=== PATIENT | male | born 1940 | race Caucasian/White ===

== ENCOUNTER 2017-01-24 10:41 | Inpatient (IN) | payer BC, OTHER ==
[~2017-01-24] VITALS: Ht 180.3 cm; Wt 78.1 kg
[2017-01-24] MEDS ORDERED: ASPI-515 PO (12:22)
[2017-01-24] MEDS ORDERED: SPIR25TA3 PO (12:22)
[2017-01-24] MEDS ORDERED: DOXA2TAB9 PO (12:22)
[2017-01-24] MEDS ORDERED: PRAMPEXOLE PO (12:22)
[2017-01-24] MEDS ORDERED: DILT120C11 PO (12:22)
[2017-01-24] MEDS ORDERED: LISI-167 PO (12:22)
[2017-01-24] MEDS ORDERED: HYDROmorphone 1 MG/ML, 1ML ONE (13:11)
[2017-01-24] MEDS ORDERED: ONDANSETRON 2MG/ML, 2ML ONE (13:12)
[2017-01-24 13:25] LABS: HEMATOCRIT 47.2 % (39.2-51.8); HEMOGLOBIN 15.9 g/dL (13.7-18.0); WHITE BLOOD COUNT 10.3 x10^3/uL (3.4-10)
[2017-01-24] MEDS ORDERED: SODIUM CHLORIDE FLUSH 10ML SYR IVF ONE (13:30)
[2017-01-24] MEDS ORDERED: HYDROmorphone 1 MG/ML, 1ML IVPush PRN (13:30)
[2017-01-24] MEDS ORDERED: SODIUM CHLORIDE 0.9% 1,000ML IVBOLUS ONE (13:30)
[2017-01-24] MEDS ORDERED: ONDANSETRON 2MG/ML, 2ML IVPush ONE (13:30)
[2017-01-24 13:38] LABS: BLOOD UREA NITROGEN 12 mg/dL (7-18)
[2017-01-24 13:41] LABS: ASPARTATE AMINO TRANSFERASE 19 U/L (15-37)
[2017-01-24] MEDS ORDERED: OMNIPAQUE 350 MG/ML, 100ML BOTTLE ONE (14:19)
[2017-01-24] MEDS ORDERED: ACETAMINOPHEN 325 MG TABLET PO PRN (16:30)
[2017-01-24] MEDS: SUCRALFATE 1 GM/10 ML UDC PO SCH ×2 (16:30→21:20)
[2017-01-24] MEDS ORDERED: HYDROcodone/APAP 5/325 TABLET PO PRN (16:30)
[2017-01-24] MEDS ORDERED: NICOTINE 14MG/24 HR PATCH.TD24 TD SCH (16:30)
[2017-01-24] MEDS ORDERED: ONDANSETRON ODT 4 MG PO PRN (16:30)
[2017-01-24] MEDS ORDERED: morphine SULFATE 10 MG/ML, 1ML IVPush PRN (16:30)
[2017-01-24] MEDS ORDERED: MAALOX/HYOSCYAMINE/LIDOCAINE 45 ML BTL PO PRN (17:00)
[2017-01-24] MEDS ORDERED: PRAMIPEXOLE 1 MG PO SCH (21:00)
[2017-01-24] MEDS: PANTOPROZOLE 40MG TABLET PO SCH (21:20)
[2017-01-24] MEDS: SODIUM CHLORIDE 0.9% 1,000 ML IV SCH (21:20)
[2017-01-24] MEDS: HEPARIN 5,000 UNITS/ML, 1ML SQ SCH (21:21)
[2017-01-24 21:31] VITALS: BP 144/55
[2017-01-25 01:34] VITALS: BP 130/60
[2017-01-25 04:50] LABS: BLOOD UREA NITROGEN 12 mg/dL (7-18)
[2017-01-25 04:53] LABS: ASPARTATE AMINO TRANSFERASE 15 U/L (15-37); HEMATOCRIT 40.8 % (39.2-51.8); HEMOGLOBIN 13.6 g/dL (13.7-18.0); WHITE BLOOD COUNT 7.6 x10^3/uL (3.4-10)
[2017-01-25] MEDS ORDERED: PRAMIPEXOLE 0.5MG TABLET PO ONE (05:00)
[2017-01-25] MEDS: HEPARIN 5,000 UNITS/ML, 1ML SQ SCH ×2 (05:23→14:02)
[2017-01-25] MEDS: SODIUM CHLORIDE 0.9% 1,000 ML IV SCH (05:24)
[2017-01-25 08:00] VITALS: BP 131/60
[2017-01-25] MEDS: SUCRALFATE 1 GM/10 ML UDC PO SCH ×2 (08:02→11:35)
[2017-01-25] MEDS: PANTOPROZOLE 40MG TABLET PO SCH (08:07)
[2017-01-25] MEDS ORDERED: ASPIRIN 81 MG TABLET EC PO SCH (09:00)
[2017-01-25] MEDS ORDERED: DILTIAZEM 120 MG CAP.ER.12H PO SCH (09:00)
[2017-01-25] MEDS ORDERED: SPIRONOLACTONE 25 MG TABLET PO SCH (09:00)
[2017-01-25] MEDS ORDERED: TAMSULOSIN 0.4 MG CAP.ER.24H PO SCH (09:00)
[2017-01-25] MEDS ORDERED: LISINOPRIL 10 MG TABLET PO SCH (09:00)
[2017-01-25] MEDS ORDERED: FINASTERIDE 5 MG TABLET PO SCH (09:00)
[2017-01-25] MEDS ORDERED: AMOXICILLIN 500 MG CAPSULE PO SCH (09:00)
[2017-01-25] MEDS ORDERED: CLARITHROMYCIN 500 MG TABLET PO SCH (09:00)
[2017-01-25] MEDS ORDERED: DOXAZOSIN 2MG TABLET PO SCH (09:00)
[2017-01-25 09:48] VITALS: BP 145/64
[2017-01-25 14:00] VITALS: BP 152/74
[2017-01-25] MEDS ORDERED: AMOX-291 PO (15:29)
[2017-01-25] MEDS ORDERED: CLAR500T PO (15:29)
[2017-01-25] MEDS ORDERED: PANT40TA5 PO (15:29)
[2017-01-25] MEDS ORDERED: TAMS-11 PO (15:29)
[2017-01-25] MEDS ORDERED: SUCR1ORA2 PO (15:29)
[2017-01-25] MEDS ORDERED: PRAMIPEXOLE 0.5MG TABLET PO SCH (21:00)
== END 2017-01-25 17:06 | disposition home or self-care (01) | DRG 392 ==
LOC: ED 14:39 → EDIP 15:08 → 3NW 18:40 → DCLOUNGE 01-25 16:40
PROVIDERS: ADMIT Internal Medicine; ATTEND Internal Medicine
DX: K29.70 Gastritis, unspecified, without bleeding (principal); D68.69 Other thrombophilia; I48.0 Paroxysmal atrial fibrillation; F17.290 Nicotine dependence, other tobacco product, uncomplicated; I11.9 Hypertensive heart disease without heart failure; I73.9 Peripheral vascular disease, unspecified; B96.81 Helicobacter pylori [H. pylori] as the cause of diseases classified elsewhere; N40.0 Benign prostatic hyperplasia without lower urinary tract symptoms; Z83.3 Family history of diabetes mellitus; Z85.21 Personal history of malignant neoplasm of larynx; Z85.828 Personal history of other malignant neoplasm of skin; Z92.3 Personal history of irradiation; Z90.49 Acquired absence of other specified parts of digestive tract; Z79.82 Long term (current) use of aspirin; Z79.899 Other long term (current) drug therapy
CPT/HCPCS: 36415; 74177; 80053; 81001; 83605; 83690; 83735; 84100; 84153; 85025; 86677; 87040; 87086; 87147; 93005; 96372; 96374; C8929; J1170; J1644; J2405; Q0162; Q9967; J7030

== ENCOUNTER → 2017-03-04 | Outpatient (CLI) | payer OTHER ==
[~2017-03-04] MED LIST: AMOX-291 PO; ASPI-515 PO; CLAR500T PO; DILT120C11 PO; DOXA2TAB9 PO; LISI-167 PO; PANT40TA5 PO; PRAMPEXOLE PO; SPIR25TA3 PO; SUCR1ORA5 PO; TAMS-11 PO
== END | disposition home or self-care (01) ==
LOC: CFH 09:53
PROVIDERS: ATTEND Family Medicine
DX: R51 Headache (principal); I10 Essential (primary) hypertension
CPT/HCPCS: 70450

== ENCOUNTER 2017-07-11 22:48 | Emergency (ER) | payer OTHER ==
[~2017-07-11] VITALS: Ht 180.3 cm; Wt 81.9 kg
[~2017-07-11 22:48] MED LIST changes: +CARV12.52 PO; +DILT-8 PO; +DILT240C61 PO; +DOXA2TAB PO; +HYDR-3342 PO; +LORA1TAB PO; +PRAM1TAB5 PO
[2017-07-11 23:30] LABS: MICROSCOPIC AUTO
[2017-07-11 23:31] LABS: CULTURE INDICATED? NO
[2017-07-12 00:32] VITALS: BP 137/52
== END 2017-07-12 00:34 | disposition home or self-care (01) ==
LOC: ED 23:26
DX: R33.9 Retention of urine, unspecified (principal); R10.30 Lower abdominal pain, unspecified; I10 Essential (primary) hypertension
CPT/HCPCS: 81001; 99284

== ENCOUNTER → 2017-11-08 | Outpatient (CLI) | payer OTHER | END | disposition home or self-care (01) | LOC: CFH 09:54 | PROVIDERS: ATTEND Family Medicine | DX: N28.1 Cyst of kidney, acquired (principal); I10 Essential (primary) hypertension | CPT/HCPCS: 93975 ==

== ENCOUNTER 2018-03-04 18:17 | Inpatient (IN) | payer OTHER ==
[~2018-03-04] VITALS: Ht 170.2 cm; Wt 71.0 kg
[~2018-03-04 18:17] MED LIST changes: +ASPI-496 PO; +CARV6.2512 PO; +DILT240T PO; +LISI-170 PO; +SOFO1TAB PO; -SPIR25TA3 PO; +SPIR25TA5 PO
[2018-03-04] MEDS ORDERED: ONDANSETRON ODT 4 MG PO ONE (19:00)
[2018-03-04] MEDS ORDERED: FAMOTIDINE 20 MG/2 ML IVP ONE (19:00)
[2018-03-04 19:05] LABS: BASOPHILS # (AUTO) 0.11 x10^3/uL (0-0.1); BASOPHILS % (AUTO) 1 % (0-1); EOSINOPHILS # (AUTO) 0.23 x10^3/uL (0-0.4); EOSINOPHILS % (AUTO) 3 % (1-7); LYMPHOCYTES # (AUTO) 0.88 x10^3/uL (1-3.4); LYMPHOCYTES % (AUTO) 11 % (22-44); MD NO; MEAN CORPUSCULAR HGB CONC 33.9 g/dL (33.2-36.2); MEAN CORPUSCULAR VOLUME 94.4 fL (81-97); MEAN PLATELET VOLUME 8.2 fL (7.4-10.4); MONOCYTES # (AUTO) 0.52 x10^3/uL (0.2-0.8); MONOCYTES % (AUTO) 6 % (2-9); NEUTROPHILS # (AUTO) 6.44 x10^3/uL (1.8-6.8); NEUTROPHILS % (AUTO) 79 % (42-75); PLATELET COUNT 196 x10^3/uL (130-400); RED BLOOD COUNT 4.08 x10^6/uL (4.38-5.82); RED CELL DISTRIBUTION WIDTH 15.3 % (9.4-14.8)
[2018-03-04] MEDS ORDERED: MORPHINE SULFATE 4 MG/ML, 1ML ONE (19:12)
[2018-03-04] MEDS ORDERED: ONDANSETRON ODT 4 MG ONE (19:12)
[2018-03-04] MEDS ORDERED: FAMOTIDINE 20 MG/2 ML ONE (19:13)
[2018-03-04] MEDS: MORPHINE SULFATE 4 MG/ML, 1ML IVPush PRN ×2 (19:15→20:44)
[2018-03-04 19:16] LABS: ALBUMIN 3.3 g/dL (3.4-5.0); ANION GAP 6 mmol/L (5-15); CALCIUM 8.5 mg/dL (8.5-10.1); CHLORIDE 113 mmol/L (98-107)
[2018-03-04 19:21] LABS: ALANINE AMINOTRANSFERASE 20 U/L (12-78); ALKALINE PHOSPHATASE 88 U/L (45-117); BILIRUBIN,TOTAL 0.7 mg/dL (0.2-1.0); CREATININE 1.01 mg/dL (0.7-1.3); TOTAL PROTEIN 6.7 g/dL (6.4-8.2)
[2018-03-04 19:23] LABS: TROPONIN I 0.333 ng/mL (0.000-0.045)
[2018-03-04] MEDS ORDERED: ASPIRIN 81 MG TABLET CHEW ONE (19:50)
[2018-03-04] MEDS ORDERED: SODIUM CHLORIDE 0.9% 1,000ML IVBOLUS ONE (20:00)
[2018-03-04] MEDS ORDERED: OMNIPAQUE 350 MG/ML, 100ML BOTTLE ONE (20:00)
[2018-03-04] MEDS ORDERED: ASPIRIN 325 MG TABLET PO ONE (20:00)
[2018-03-04] MEDS ORDERED: HEPARIN 5,000 UNITS/ML, 1ML ONE (20:24)
[2018-03-04] MEDS ORDERED: HEPARIN 25,000 UNITS/500ML PMX 500 ML ONE (20:24)
[2018-03-04] MEDS ORDERED: HEPARIN 5,000 UNITS/ML, 1ML IV ONE ×2 (20:30→21:30)
[2018-03-04] MEDS ORDERED: HEPARIN 25,000 UNITS/500ML PMX 500 ML IV PRN ×2 (20:30→21:30)
[2018-03-04] MEDS ORDERED: HEPARIN 5,000 UNITS/ML, 1ML IV PRN ×2 (20:30→21:30)
[2018-03-04] MEDS ORDERED: ATOR20TA9 PO (20:34)
[2018-03-04] MEDS ORDERED: DILT240C9 PO (20:38)
[2018-03-04 21:25] VITALS: BP 144/58
[2018-03-04] MEDS ORDERED: ONDANSETRON ODT 4 MG PO PRN (21:30)
[2018-03-04] MEDS ORDERED: NITROGLYCERIN 0.4 MG BOTTLE (25 TABS) SL PRN (21:30)
[2018-03-04] MEDS ORDERED: POLYETHYLENE GLYCOL 17 GM PACKET PO PRN (21:30)
[2018-03-04] MEDS ORDERED: BISACODYL 10 MG SUPP PR PRN (21:30)
[2018-03-04] MEDS ORDERED: DOXAZOSIN 2MG TABLET PO SCH (21:30)
[2018-03-04] MEDS ORDERED: DILTIAZEM 240 MG CAP.ER.24H PO SCH (21:30)
[2018-03-04] MEDS: CARVEDILOL 6.25 MG TABLET PO SCH (22:57)
[2018-03-04] MEDS: FUROSEMIDE 20 MG/2 ML IV SCH (22:57)
[2018-03-04] MEDS: DILTIAZEM 120 MG CAP.ER.12H PO SCH (22:58)
[2018-03-04] MEDS ORDERED: SODIUM CHLORIDE 0.9% 1,000 ML IV SCH (23:00)
[2018-03-04] MEDS: LISINOPRIL 20 MG TABLET PO SCH (23:00)
[2018-03-04] MEDS: PRAMIPEXOLE 0.5MG TABLET PO SCH (23:01)
[2018-03-04] MEDS: SODIUM CHLORIDE FLUSH 10ML SYR IVF SCH (23:02)
[2018-03-04] MEDS: morphine SULFATE 10 MG/ML, 1ML IVPush PRN (23:19)
[2018-03-05 02:01] LABS: BASOPHILS # (AUTO) 0.19 x10^3/uL (0-0.1); BASOPHILS % (AUTO) 2 % (0-1); EOSINOPHILS # (AUTO) 0.28 x10^3/uL (0-0.4); EOSINOPHILS % (AUTO) 4 % (1-7); LYMPHOCYTES # (AUTO) 1.29 x10^3/uL (1-3.4); LYMPHOCYTES % (AUTO) 16 % (22-44); MD NO; MEAN CORPUSCULAR HEMOGLOBIN 31.1 pg (27.5-34.5); MEAN CORPUSCULAR HGB CONC 33.3 g/dL (33.2-36.2); MEAN CORPUSCULAR VOLUME 93.4 fL (81-97); MEAN PLATELET VOLUME 8.1 fL (7.4-10.4); MONOCYTES # (AUTO) 0.72 x10^3/uL (0.2-0.8); MONOCYTES % (AUTO) 9 % (2-9); NEUTROPHILS # (AUTO) 5.66 x10^3/uL (1.8-6.8); NEUTROPHILS % (AUTO) 70 % (42-75); PLATELET COUNT 194 x10^3/uL (130-400); RED BLOOD COUNT 3.85 x10^6/uL (4.38-5.82); RED CELL DISTRIBUTION WIDTH 15.1 % (9.4-14.8)
[2018-03-05 02:13] LABS: INTERNATIONAL NORMALIZED RATIO 1.05 (0.93-1.1); PROTHROMBIN TIME 10.9 Seconds (9.6-11.5); TROPONIN I 0.254 ng/mL (0.000-0.045)
[2018-03-05 03:09] VITALS: BP 119/58
[2018-03-05] MEDS: ACETAMINOPHEN 325 MG TABLET PO PRN (04:29)
[2018-03-05] MEDS: LORazepam 1MG TABLET PO SCH (05:34)
[2018-03-05] MEDS ORDERED: ASPIRIN 81 MG TABLET EC PO SCH (06:00)
[2018-03-05 06:48] VITALS: BP 117/59
[2018-03-05 07:29] LABS: ALANINE AMINOTRANSFERASE 21 U/L (12-78); ALBUMIN 3.2 g/dL (3.4-5.0); ANION GAP 7 mmol/L (5-15); CALCIUM 8.3 mg/dL (8.5-10.1); CHLORIDE 112 mmol/L (98-107); CREATININE 1.17 mg/dL (0.7-1.3)
[2018-03-05 07:34] LABS: ALKALINE PHOSPHATASE 92 U/L (45-117); BILIRUBIN,TOTAL 0.4 mg/dL (0.2-1.0); CHOL/HDL RATIO 1.9; CHOLESTEROL, TOTAL 79 mg/dL (140-239); HDL CHOL % 53 % (26-37); HDL CHOLESTEROL (DIRECT) 42 mg/dL (40-60); LDL CHOLESTEROL,CALCULATED 30 mg/dL (54-169); LDL/HDL RATIO 0.7 (0.5-3.0); TOTAL PROTEIN 6.3 g/dL (6.4-8.2); TRIGLYCERIDES 36 mg/dL (50-200); TROPONIN I 0.243 ng/mL (0.000-0.045); VLDL CHOLESTEROL 7 mg/dL (0-25)
[2018-03-05] MEDS ORDERED: FENTANYL PF 100 MCG/2ML ONE (07:49)
[2018-03-05] MEDS ORDERED: NITROGLYCERIN 5 MG/ML, 10ML ONE (07:49)
[2018-03-05] MEDS ORDERED: TICAGRELOR 90 MG TABLET ONE (07:49)
[2018-03-05] MEDS ORDERED: VERAPAMIL 2.5 MG/ML, 2ML ONE (07:49)
[2018-03-05] MEDS ORDERED: MIDAZOLAM 1 MG/ML, 5ML ONE (07:49)
[2018-03-05] MEDS ORDERED: HEPARIN 1,000 UNITS/ML, 10ML ONE (07:50)
[2018-03-05] MEDS ORDERED: BIVALIRUDIN 250 MG ONE (07:50)
[2018-03-05] MEDS ORDERED: LORazepam 1MG TABLET PO SCH (09:00)
[2018-03-05] MEDS: CARVEDILOL 6.25 MG TABLET PO SCH ×2 (09:00→20:27)
[2018-03-05] MEDS: SENNA/DOCUSATE TABLET PO SCH (09:00)
[2018-03-05] MEDS ORDERED: ATORVASTATIN 20 MG TABLET PO SCH (09:00)
[2018-03-05] MEDS: DILTIAZEM 120 MG CAP.ER.12H PO SCH ×2 (09:00→20:27)
[2018-03-05] MEDS ORDERED: SODIUM CHLORIDE 0.9% 1,000 ML IV SCH ×2 (09:43→10:00)
[2018-03-05] MEDS: FUROSEMIDE 20 MG/2 ML IV SCH ×2 (11:24→14:15)
[2018-03-05] MEDS: SODIUM CHLORIDE FLUSH 10ML SYR IVF SCH ×2 (11:28→20:28)
[2018-03-05] MEDS: DOXAZOSIN 2MG TABLET PO SCH (11:34)
[2018-03-05] MEDS: LISINOPRIL 20 MG TABLET PO SCH ×2 (11:40→20:28)
[2018-03-05 12:26] VITALS: BP 179/153
[2018-03-05] MEDS ORDERED: FUROSEMIDE 40 MG/4 ML ONE (12:35)
[2018-03-05] MEDS ORDERED: ALBUTEROL/IPRATROPIUM 2.5MG/0.5MG, 3 ML ONE (12:41)
[2018-03-05] MEDS ORDERED: FUROSEMIDE 40 MG/4 ML IV ONE ×2 (13:00→18:00)
[2018-03-05] MEDS ORDERED: TAMSULOSIN 0.4 MG CAP.ER.24H PO SCH (16:00)
[2018-03-05] MEDS: morphine SULFATE 10 MG/ML, 1ML IVPush PRN ×2 (16:32→17:04)
[2018-03-05] MEDS: FUROSEMIDE 40 MG/4 ML IV SCH (17:10)
[2018-03-05 19:04] VITALS: BP 121/62
[2018-03-05] MEDS: ATORVASTATIN 80 MG TABLET PO SCH (20:27)
[2018-03-05] MEDS: PRAMIPEXOLE 0.5MG TABLET PO SCH (20:27)
[2018-03-05] MEDS: SPIRONOLACTONE 25 MG TABLET PO SCH (20:28)
[2018-03-05] MEDS ORDERED: PRAMIPEXOLE 0.5MG TABLET PO SCH (21:00)
[2018-03-05] MEDS ORDERED: TICAGRELOR 90 MG TABLET PO SCH (21:00)
[2018-03-05] MEDS ORDERED: LORazepam 1MG TABLET PO ONE (22:30)
[2018-03-06 01:02] VITALS: BP 122/52
[2018-03-06] MEDS ORDERED: ATROPINE SYRINGE 0.1 MG/ML, 10ML ONE (01:14)
[2018-03-06 05:22] LABS: BASOPHILS # (AUTO) 0.06 x10^3/uL (0-0.1); BASOPHILS % (AUTO) 1 % (0-1); EOSINOPHILS # (AUTO) 0.15 x10^3/uL (0-0.4); EOSINOPHILS % (AUTO) 2 % (1-7); LYMPHOCYTES # (AUTO) 0.81 x10^3/uL (1-3.4); LYMPHOCYTES % (AUTO) 8 % (22-44); MD NO; MEAN CORPUSCULAR HEMOGLOBIN 32.1 pg (27.5-34.5); MEAN CORPUSCULAR HGB CONC 34.2 g/dL (33.2-36.2); MEAN CORPUSCULAR VOLUME 93.7 fL (81-97); MEAN PLATELET VOLUME 8.5 fL (7.4-10.4); MONOCYTES # (AUTO) 0.84 x10^3/uL (0.2-0.8); MONOCYTES % (AUTO) 9 % (2-9); NEUTROPHILS # (AUTO) 8.04 x10^3/uL (1.8-6.8); NEUTROPHILS % (AUTO) 81 % (42-75); PLATELET COUNT 199 x10^3/uL (130-400)
[2018-03-06 05:36] LABS: CHLORIDE 109 mmol/L (98-107)
[2018-03-06 05:44] LABS: ALANINE AMINOTRANSFERASE 22 U/L (12-78); ALBUMIN 3.6 g/dL (3.4-5.0); ALKALINE PHOSPHATASE 100 U/L (45-117); ANION GAP 10 mmol/L (5-15); BILIRUBIN,TOTAL 1.3 mg/dL (0.2-1.0); CALCIUM 9.4 mg/dL (8.5-10.1); CREATININE 1.13 mg/dL (0.7-1.3); TOTAL PROTEIN 7.2 g/dL (6.4-8.2)
[2018-03-06] MEDS: LORazepam 1MG TABLET PO SCH ×2 (06:25→07:53)
[2018-03-06 07:23] VITALS: BP 124/58
[2018-03-06] MEDS: SENNA/DOCUSATE TABLET PO SCH (07:52)
[2018-03-06] MEDS: CARVEDILOL 6.25 MG TABLET PO SCH (07:52)
[2018-03-06] MEDS: DILTIAZEM 120 MG CAP.ER.12H PO SCH (07:54)
[2018-03-06] MEDS: FUROSEMIDE 40 MG/4 ML IV SCH ×2 (08:19→17:46)
[2018-03-06] MEDS: DOXAZOSIN 2MG TABLET PO SCH ×2 (08:20→09:00)
[2018-03-06] MEDS: SODIUM CHLORIDE FLUSH 10ML SYR IVF SCH ×2 (08:20→20:55)
[2018-03-06] MEDS ORDERED: FUROSEMIDE 40 MG/4 ML IV ONE (08:30)
[2018-03-06] MEDS: LISINOPRIL 20 MG TABLET PO SCH ×2 (09:20→20:56)
[2018-03-06] MEDS: morphine SULFATE 10 MG/ML, 1ML IVPush PRN ×2 (09:20→10:36)
[2018-03-06] MEDS: CLOPIDOGREL 75 MG TABLET PO SCH (09:20)
[2018-03-06] MEDS ORDERED: OPIUM/BELLADONNA SUPP.RECT 16.2-30 MG PR PRN (10:00)
[2018-03-06] MEDS: ASPIRIN 81 MG TABLET EC PO SCH (11:44)
[2018-03-06] MEDS ORDERED: SODIUM CHLORIDE NASAL SPRAY 45ML BOTTLE NAS PRN (13:00)
[2018-03-06 13:04] VITALS: BP 118/56
[2018-03-06 20:47] VITALS: BP 122/69
[2018-03-06] MEDS: LORazepam 1MG TABLET PO PRN (20:50)
[2018-03-06] MEDS: ATORVASTATIN 80 MG TABLET PO SCH (20:50)
[2018-03-06] MEDS: SPIRONOLACTONE 25 MG TABLET PO SCH (20:52)
[2018-03-06] MEDS: PRAMIPEXOLE 0.5MG TABLET PO SCH (21:57)
[2018-03-06] MEDS: TRAZODONE 50MG TABLET PO PRN (21:57)
[2018-03-07 02:00] VITALS: BP 120/64
[2018-03-07] MEDS: DILTIAZEM 120 MG CAP.ER.12H PO SCH ×3 (02:00→21:13)
[2018-03-07] MEDS: ACETAMINOPHEN 325 MG TABLET PO PRN (05:31)
[2018-03-07 06:06] LABS: BASOPHILS # (AUTO) 0.08 x10^3/uL (0-0.1); BASOPHILS % (AUTO) 1 % (0-1); EOSINOPHILS # (AUTO) 0.07 x10^3/uL (0-0.4); EOSINOPHILS % (AUTO) 1 % (1-7); LYMPHOCYTES # (AUTO) 0.85 x10^3/uL (1-3.4); LYMPHOCYTES % (AUTO) 9 % (22-44); MD NO; MEAN CORPUSCULAR HEMOGLOBIN 31.4 pg (27.5-34.5); MEAN CORPUSCULAR HGB CONC 34.1 g/dL (33.2-36.2); MEAN PLATELET VOLUME 8.2 fL (7.4-10.4); MONOCYTES # (AUTO) 0.67 x10^3/uL (0.2-0.8); MONOCYTES % (AUTO) 7 % (2-9); NEUTROPHILS # (AUTO) 7.76 x10^3/uL (1.8-6.8); NEUTROPHILS % (AUTO) 82 % (42-75); PLATELET COUNT 199 x10^3/uL (130-400); RED BLOOD COUNT 4.34 x10^6/uL (4.38-5.82)
[2018-03-07 06:13] LABS: CHLORIDE 105 mmol/L (98-107)
[2018-03-07 06:23] LABS: ALANINE AMINOTRANSFERASE 20 U/L (12-78); ALBUMIN 3.7 g/dL (3.4-5.0); ALKALINE PHOSPHATASE 105 U/L (45-117); ANION GAP 11 mmol/L (5-15); BILIRUBIN,TOTAL 1.5 mg/dL (0.2-1.0); CALCIUM 9.1 mg/dL (8.5-10.1); CREATININE 1.11 mg/dL (0.7-1.3); TOTAL PROTEIN 7.1 g/dL (6.4-8.2)
[2018-03-07 06:58] VITALS: BP 133/67
[2018-03-07] MEDS ORDERED: CEFAZOLIN PMX 1GM/50ML 50 ML IVPB ONE (08:30)
[2018-03-07] MEDS: LISINOPRIL 20 MG TABLET PO SCH ×2 (08:49→21:13)
[2018-03-07] MEDS: LORazepam 1MG TABLET PO SCH (08:49)
[2018-03-07] MEDS: CLOPIDOGREL 75 MG TABLET PO SCH (08:50)
[2018-03-07] MEDS: SENNA/DOCUSATE TABLET PO SCH (08:50)
[2018-03-07] MEDS: ASPIRIN 81 MG TABLET EC PO SCH (08:50)
[2018-03-07] MEDS ORDERED: POTASSIUM CHLORIDE 20 MEQ TAB.ER.PRT ONE (08:59)
[2018-03-07] MEDS ORDERED: FUROSEMIDE 40 MG/4 ML IV SCH (09:00)
[2018-03-07] MEDS ORDERED: TAMSULOSIN 0.4 MG CAP.ER.24H PO SCH (09:00)
[2018-03-07] MEDS: SODIUM CHLORIDE FLUSH 10ML SYR IVF SCH ×2 (09:03→21:15)
[2018-03-07] MEDS: DOXAZOSIN 2MG TABLET PO SCH (09:03)
[2018-03-07] MEDS: FINASTERIDE 5 MG TABLET PO SCH (09:04)
[2018-03-07] MEDS: POTASSIUM CHLORIDE 20 MEQ TAB.ER.PRT PO SCH (09:06)
[2018-03-07] MEDS: SODIUM CHLORIDE 0.9% 1,000 ML IV SCH ×2 (13:02→16:25)
[2018-03-07 13:42] VITALS: BP 145/61
[2018-03-07] MEDS ORDERED: CEFAZOLIN PMX 1GM/50ML 50 ML ONE (15:05)
[2018-03-07] MEDS ORDERED: CEFAZOLIN 1,000 MG ONE (15:05)
[2018-03-07] MEDS ORDERED: MIDAZOLAM 1 MG/ML, 5ML ONE (15:05)
[2018-03-07] MEDS ORDERED: FENTANYL PF 100 MCG/2ML ONE ×2 (15:05→15:59)
[2018-03-07] MEDS ORDERED: LIDOCAINE 1%, 50ML ONE (15:42)
[2018-03-07] MEDS ORDERED: HOLD MEDICATION MC PRN (16:30)
[2018-03-07 18:53] VITALS: BP 146/69
[2018-03-07] MEDS ORDERED: NICOTINE 14MG/24 HR PATCH.TD24 TD ONE (21:00)
[2018-03-07] MEDS: SPIRONOLACTONE 25 MG TABLET PO SCH (21:13)
[2018-03-07] MEDS: PRAMIPEXOLE 0.5MG TABLET PO SCH (21:13)
[2018-03-07] MEDS: CALCIUM CARBONATE 500 MG TAB.CHEW PO PRN (21:15)
[2018-03-07] MEDS: ATORVASTATIN 80 MG TABLET PO SCH (22:18)
[2018-03-07] MEDS: LORazepam 1MG TABLET PO PRN (22:19)
[2018-03-08] MEDS: TRAZODONE 50MG TABLET PO PRN (00:14)
[2018-03-08] MEDS: SODIUM CHLORIDE 0.9% 1,000 ML IV SCH (00:25)
[2018-03-08 00:55] VITALS: BP 108/46
[2018-03-08] MEDS: CEFAZOLIN PMX 1GM/50ML 50 ML IVPB SCH ×2 (01:09→09:30)
[2018-03-08 06:00] LABS: BASOPHILS # (AUTO) 0.02 x10^3/uL (0-0.1); BASOPHILS % (AUTO) 0 % (0-1); EOSINOPHILS # (AUTO) 0.18 x10^3/uL (0-0.4); EOSINOPHILS % (AUTO) 2 % (1-7); LYMPHOCYTES # (AUTO) 0.81 x10^3/uL (1-3.4); LYMPHOCYTES % (AUTO) 8 % (22-44); MD NO; MEAN CORPUSCULAR HEMOGLOBIN 31.5 pg (27.5-34.5); MEAN CORPUSCULAR HGB CONC 34.1 g/dL (33.2-36.2); MEAN CORPUSCULAR VOLUME 92.4 fL (81-97); MEAN PLATELET VOLUME 8.6 fL (7.4-10.4); MONOCYTES # (AUTO) 0.83 x10^3/uL (0.2-0.8); MONOCYTES % (AUTO) 8 % (2-9); NEUTROPHILS # (AUTO) 7.97 x10^3/uL (1.8-6.8); NEUTROPHILS % (AUTO) 81 % (42-75); PLATELET COUNT 187 x10^3/uL (130-400); RED BLOOD COUNT 4.26 x10^6/uL (4.38-5.82); RED CELL DISTRIBUTION WIDTH 14.8 % (9.4-14.8)
[2018-03-08 06:05] LABS: ALANINE AMINOTRANSFERASE 15 U/L (12-78); ALBUMIN 3.2 g/dL (3.4-5.0); ANION GAP 8 mmol/L (5-15); CALCIUM 8.4 mg/dL (8.5-10.1); CHLORIDE 109 mmol/L (98-107); CREATININE 1.01 mg/dL (0.7-1.3)
[2018-03-08 06:07] LABS: ALKALINE PHOSPHATASE 100 U/L (45-117); TOTAL PROTEIN 6.7 g/dL (6.4-8.2)
[2018-03-08 07:56] VITALS: BP 130/64
[2018-03-08] MEDS: SODIUM CHLORIDE FLUSH 10ML SYR IVF SCH ×2 (09:00→21:43)
[2018-03-08] MEDS: POTASSIUM CHLORIDE 20 MEQ TAB.ER.PRT PO SCH ×2 (09:05→17:31)
[2018-03-08] MEDS: LORazepam 1MG TABLET PO SCH (09:06)
[2018-03-08] MEDS: CLOPIDOGREL 75 MG TABLET PO SCH (09:06)
[2018-03-08] MEDS: SENNA/DOCUSATE TABLET PO SCH (09:07)
[2018-03-08] MEDS: FINASTERIDE 5 MG TABLET PO SCH (09:08)
[2018-03-08] MEDS: DOXAZOSIN 2MG TABLET PO SCH (09:08)
[2018-03-08] MEDS: ASPIRIN 81 MG TABLET EC PO SCH (09:09)
[2018-03-08] MEDS: FUROSEMIDE 20 MG TABLET PO SCH (09:09)
[2018-03-08] MEDS: CARVEDILOL 6.25 MG TABLET PO SCH ×2 (09:09→17:31)
[2018-03-08] MEDS: ATORVASTATIN 80 MG TABLET PO SCH (09:10)
[2018-03-08] MEDS: LISINOPRIL 20 MG TABLET PO SCH ×2 (09:10→21:00)
[2018-03-08] MEDS: ACETAMINOPHEN 325 MG TABLET PO PRN ×2 (10:23→19:45)
[2018-03-08 14:49] VITALS: BP 134/68
[2018-03-08 14:57] LABS: MICROSCOPIC INDICATED
[2018-03-08 19:35] VITALS: BP_SYST 90; BP_SYST 93; BP_DIAS 44; BP_DIAS 52
[2018-03-08 20:56] VITALS: BP 100/49
[2018-03-08] MEDS: SPIRONOLACTONE 25 MG TABLET PO SCH (21:00)
[2018-03-08] MEDS: PRAMIPEXOLE 0.5MG TABLET PO SCH (21:43)
[2018-03-09] VITALS (7 sets, daily range): BP systolic 110–135; BP diastolic 51–71
[2018-03-09 04:59] LABS: ALANINE AMINOTRANSFERASE 15 U/L (12-78); ALBUMIN 2.9 g/dL (3.4-5.0); ANION GAP 8 mmol/L (5-15); CALCIUM 8.1 mg/dL (8.5-10.1); CHLORIDE 109 mmol/L (98-107); CREATININE 1.05 mg/dL (0.7-1.3)
[2018-03-09 05:02] LABS: ALKALINE PHOSPHATASE 97 U/L (45-117); BILIRUBIN,TOTAL 0.4 mg/dL (0.2-1.0); TOTAL PROTEIN 6.1 g/dL (6.4-8.2)
[2018-03-09 05:56] LABS: MEAN CORPUSCULAR HEMOGLOBIN 31.7 pg (27.5-34.5); MEAN CORPUSCULAR VOLUME 93.4 fL (81-97); MEAN PLATELET VOLUME 8.5 fL (7.4-10.4); PLATELET COUNT 161 x10^3/uL (130-400); RED BLOOD COUNT 3.81 x10^6/uL (4.38-5.82); RED CELL DISTRIBUTION WIDTH 15.1 % (9.4-14.8)
[2018-03-09 05:57] LABS: BASOPHILS # (AUTO) 0.07 x10^3/uL (0-0.1); BASOPHILS % (AUTO) 1 % (0-1); EOSINOPHILS # (AUTO) 0.39 x10^3/uL (0-0.4); EOSINOPHILS % (AUTO) 5 % (1-7); LYMPHOCYTES # (AUTO) 1.26 x10^3/uL (1-3.4); LYMPHOCYTES % (AUTO) 15 % (22-44); MD SCAN; MONOCYTES # (AUTO) 0.83 x10^3/uL (0.2-0.8); MONOCYTES % (AUTO) 10 % (2-9); NEUTROPHILS # (AUTO) 5.93 x10^3/uL (1.8-6.8); NEUTROPHILS % (AUTO) 70 % (42-75)
[2018-03-09] MEDS: CALCIUM CARBONATE 500 MG TAB.CHEW PO PRN ×2 (06:23→19:34)
[2018-03-09] MEDS ORDERED: POTASSIUM CHLORIDE 10 MEQ TABLET.ER PO SCH (09:00)
[2018-03-09] MEDS ORDERED: LISINOPRIL 20 MG TABLET PO SCH (09:00)
[2018-03-09] MEDS: SODIUM CHLORIDE FLUSH 10ML SYR IVF SCH ×2 (09:48→20:52)
[2018-03-09] MEDS: LORazepam 1MG TABLET PO SCH (09:48)
[2018-03-09] MEDS: DOXAZOSIN 2MG TABLET PO SCH (09:50)
[2018-03-09] MEDS: CLOPIDOGREL 75 MG TABLET PO SCH (09:50)
[2018-03-09] MEDS: ATORVASTATIN 80 MG TABLET PO SCH (09:51)
[2018-03-09] MEDS: CARVEDILOL 6.25 MG TABLET PO SCH ×2 (09:51→18:17)
[2018-03-09] MEDS: SENNA/DOCUSATE TABLET PO SCH (09:51)
[2018-03-09] MEDS: ASPIRIN 81 MG TABLET EC PO SCH (09:51)
[2018-03-09] MEDS: FINASTERIDE 5 MG TABLET PO SCH (09:59)
[2018-03-09] MEDS: FUROSEMIDE 20 MG TABLET PO SCH (10:00)
[2018-03-09] MEDS: PRAMIPEXOLE 0.5MG TABLET PO SCH (20:51)
[2018-03-09] MEDS: SPIRONOLACTONE 25 MG TABLET PO SCH (20:51)
[2018-03-10] MEDS: TRAZODONE 50MG TABLET PO PRN (01:59)
[2018-03-10 02:23] VITALS: BP 136/68
[2018-03-10 05:27] VITALS: BP 148/68
[2018-03-10] MEDS: CARVEDILOL 6.25 MG TABLET PO SCH (05:29)
[2018-03-10] MEDS ORDERED: NITROGLYCERIN 0.4 MG BOTTLE (25 TABS) SL PRN (07:00)
[2018-03-10] MEDS ORDERED: NITROGLYCERIN 0.4 MG/SPRAY SL PRN (07:00)
[2018-03-10 07:41] VITALS: BP 135/58
[2018-03-10] MEDS: ASPIRIN 81 MG TABLET EC PO SCH (08:18)
[2018-03-10] MEDS: DOXAZOSIN 2MG TABLET PO SCH (08:18)
[2018-03-10] MEDS: FINASTERIDE 5 MG TABLET PO SCH (08:19)
[2018-03-10] MEDS: SENNA/DOCUSATE TABLET PO SCH (08:19)
[2018-03-10] MEDS: CLOPIDOGREL 75 MG TABLET PO SCH (08:19)
[2018-03-10] MEDS: SODIUM CHLORIDE FLUSH 10ML SYR IVF SCH (08:19)
[2018-03-10] MEDS: LORazepam 1MG TABLET PO SCH (08:19)
[2018-03-10] MEDS: FUROSEMIDE 20 MG TABLET PO SCH (08:19)
[2018-03-10] MEDS ORDERED: LISINOPRIL 5 MG TABLET PO SCH ×2 (09:00)
[2018-03-10] MEDS ORDERED: FINA5TAB4 PO (12:12)
[2018-03-10] MEDS ORDERED: FURO20TA3 PO (12:12)
[2018-03-10] MEDS ORDERED: LISI5TAB7 PO (12:12)
[2018-03-10] MEDS ORDERED: CLOP75TA PO (12:12)
[2018-03-10] MEDS ORDERED: ATOR-2 PO (12:12)
[2018-03-10] MEDS ORDERED: NITR0.4T SL (12:12)
[2018-03-10] MEDS ORDERED: CALC200T24 PO (12:12)
[2018-03-10 13:10] VITALS: BP 110/58
== END 2018-03-10 14:50 | disposition home health service (06) | DRG 242 ==
LOC: ED 20:15 → EDIP 20:16 → 5SO 21:23 → DCLOUNGE 03-10 14:21
PROVIDERS: ADMIT Internal Medicine; ATTEND Internal Medicine
PROC: 027034Z Dilation of Coronary Artery, One Artery with Drug-eluting Intraluminal Device, Percutaneous Approach (ICD-10-PCS; principal; 2018-03-05)
PROC: 4A023N7 Measurement of Cardiac Sampling and Pressure, Left Heart, Percutaneous Approach (ICD-10-PCS; 2018-03-05)
PROC: 02713ZZ Dilation of Coronary Artery, Two Arteries, Percutaneous Approach (ICD-10-PCS; 2018-03-05)
PROC: B2111ZZ Fluoroscopy of Multiple Coronary Arteries using Low Osmolar Contrast (ICD-10-PCS; 2018-03-05)
PROC: 0JH606Z Insertion of Pacemaker, Dual Chamber into Chest Subcutaneous Tissue and Fascia, Open Approach (ICD-10-PCS; 2018-03-07)
PROC: 02H63JZ Insertion of Pacemaker Lead into Right Atrium, Percutaneous Approach (ICD-10-PCS; 2018-03-07)
PROC: 02HK3JZ Insertion of Pacemaker Lead into Right Ventricle, Percutaneous Approach (ICD-10-PCS; 2018-03-07)
DX: I21.4 Non-ST elevation (NSTEMI) myocardial infarction (principal); J96.01 Acute respiratory failure with hypoxia; I50.20 Unspecified systolic (congestive) heart failure; J98.11 Atelectasis; J44.9 Chronic obstructive pulmonary disease, unspecified; B18.2 Chronic viral hepatitis C; E78.5 Hyperlipidemia, unspecified; I11.0 Hypertensive heart disease with heart failure; I25.10 Atherosclerotic heart disease of native coronary artery without angina pectoris; I48.91 Unspecified atrial fibrillation; I73.9 Peripheral vascular disease, unspecified; N40.1 Benign prostatic hyperplasia with lower urinary tract symptoms; R31.0 Gross hematuria; R33.8 Other retention of urine; Z79.82 Long term (current) use of aspirin; Z82.49 Family history of ischemic heart disease and other diseases of the circulatory system; Z85.21 Personal history of malignant neoplasm of larynx; Z88.6 Allergy status to analgesic agent; Z85.819 Personal history of malignant neoplasm of unspecified site of lip, oral cavity, and pharynx; Z88.8 Allergy status to other drugs, medicaments and biological substances; I35.1 Nonrheumatic aortic (valve) insufficiency; Z90.49 Acquired absence of other specified parts of digestive tract; Z92.3 Personal history of irradiation; Z98.1 Arthrodesis status; Z79.899 Other long term (current) drug therapy; F17.210 Nicotine dependence, cigarettes, uncomplicated
CPT/HCPCS: 33208; 36415; 71045; 71275; 74174; 76770; 80053; 80061; 81001; 83605; 83690; 83880; 84484; 85025; 85520; 85610; 85730; 86677; 87338; 92920; 93005; 93306; 93458; 94640; 96374; 99156; 99157; 99291; C1769; C1779; C1785; C1892; C1894; C9600; G0378; J0583; J0690; J1644; J1940; J2250; J3010; J3490; Q0162; Q9967; 92928; C1725; C1874; C1887; J2270; J7030; S0028

== ENCOUNTER 2018-03-16 08:16 | Emergency (ER) | payer OTHER ==
[~2018-03-16] VITALS: Ht 180.3 cm; Wt 75.0 kg
[~2018-03-16 08:16] MED LIST changes: +ATOR-2 PO; +ATOR20TA9 PO; +CALC200T24 PO; +CLOP75TA PO; +DILT240C9 PO; +FINA5TAB4 PO; +FURO20TA3 PO; +LISI5TAB7 PO; +NITR0.4T SL
[2018-03-16 08:57] LABS: BASOPHILS # (AUTO) 0.07 x10^3/uL (0-0.1); BASOPHILS % (AUTO) 1 % (0-1); EOSINOPHILS # (AUTO) 0.16 x10^3/uL (0-0.4); EOSINOPHILS % (AUTO) 3 % (1-7); LYMPHOCYTES # (AUTO) 0.96 x10^3/uL (1-3.4); LYMPHOCYTES % (AUTO) 16 % (22-44); MD NO; MEAN CORPUSCULAR HEMOGLOBIN 30.2 pg (27.5-34.5); MEAN CORPUSCULAR HGB CONC 32.4 g/dL (33.2-36.2); MEAN CORPUSCULAR VOLUME 93.3 fL (81-97); MONOCYTES # (AUTO) 0.51 x10^3/uL (0.2-0.8); MONOCYTES % (AUTO) 9 % (2-9); NEUTROPHILS # (AUTO) 4.33 x10^3/uL (1.8-6.8); NEUTROPHILS % (AUTO) 72 % (42-75); PLATELET COUNT 218 x10^3/uL (130-400); RED BLOOD COUNT 3.93 x10^6/uL (4.38-5.82); RED CELL DISTRIBUTION WIDTH 14.8 % (9.4-14.8)
[2018-03-16 09:07] LABS: ALBUMIN 3.3 g/dL (3.4-5.0); ANION GAP 8 mmol/L (5-15); CALCIUM 8.9 mg/dL (8.5-10.1); CHLORIDE 104 mmol/L (98-107); CREATININE 0.95 mg/dL (0.7-1.3)
[2018-03-16 09:11] LABS: TROPONIN I 0.028 ng/mL (0.000-0.045)
[2018-03-16 10:01] VITALS: BP 139/72
== END 2018-03-16 10:55 | disposition home or self-care (01) ==
LOC: ED 09:12
DX: R07.89 Other chest pain (principal)
CPT/HCPCS: 36415; 71045; 80048; 82040; 84484; 85025; 93005; 99285

== ENCOUNTER → 2018-03-28 | Outpatient (CLI) | payer OTHER | END | disposition home or self-care (01) | LOC: CFH 08:40 | PROVIDERS: ATTEND Physician Assistant | DX: K21.0 Gastro-esophageal reflux disease with esophagitis (principal) | CPT/HCPCS: 74241 ==

== ENCOUNTER 2018-05-20 09:07 | Emergency (ER) | payer OTHER ==
[~2018-05-20 09:07] MED LIST changes: +ATOR20TA37 PO; -ATOR20TA9 PO
[2018-05-20] MEDS ORDERED: CARBAMIDE PEROXIDE EAR DROPS 6.5%, 15ML RIGHT EAR ONE (09:30)
[2018-05-20] MEDS ORDERED: MECLIZINE CHEWABLE 25 MG TAB PO ONE (09:30)
[2018-05-20] MEDS ORDERED: CARBAMIDE PEROXIDE EAR DROPS 6.5%, 15ML ONE (10:01)
[2018-05-20] MEDS ORDERED: MECLIZINE CHEWABLE 25 MG TAB ONE (10:01)
[2018-05-20 10:17] LABS: BASOPHILS # (AUTO) 0.06 x10^3/uL (0-0.1); BASOPHILS % (AUTO) 1 % (0-1); EOSINOPHILS # (AUTO) 0.26 x10^3/uL (0-0.4); EOSINOPHILS % (AUTO) 4 % (1-7); LYMPHOCYTES # (AUTO) 1.06 x10^3/uL (1-3.4); LYMPHOCYTES % (AUTO) 14 % (22-44); MD NO; MEAN CORPUSCULAR HEMOGLOBIN 31.1 pg (27.5-34.5); MEAN CORPUSCULAR HGB CONC 33.8 g/dL (33.2-36.2); MEAN CORPUSCULAR VOLUME 91.9 fL (81-97); MEAN PLATELET VOLUME 8.4 fL (7.4-10.4); MONOCYTES # (AUTO) 0.67 x10^3/uL (0.2-0.8); MONOCYTES % (AUTO) 9 % (2-9); NEUTROPHILS % (AUTO) 72 % (42-75); PLATELET COUNT 178 x10^3/uL (130-400); RED BLOOD COUNT 4.53 x10^6/uL (4.38-5.82); RED CELL DISTRIBUTION WIDTH 14.9 % (9.4-14.8)
[2018-05-20 10:30] LABS: ALANINE AMINOTRANSFERASE 28 U/L (12-78); ALBUMIN 3.4 g/dL (3.4-5.0); ANION GAP 7 mmol/L (5-15); CALCIUM 8.5 mg/dL (8.5-10.1); CHLORIDE 108 mmol/L (98-107); CREATININE 1.01 mg/dL (0.7-1.3)
[2018-05-20 10:32] LABS: ALKALINE PHOSPHATASE 108 U/L (45-117); BILIRUBIN,TOTAL 0.5 mg/dL (0.2-1.0); TOTAL PROTEIN 7.1 g/dL (6.4-8.2)
[2018-05-20 11:55] VITALS: BP 133/55
== END 2018-05-20 11:58 | disposition home or self-care (01) ==
LOC: ED 10:10
DX: H61.21 Impacted cerumen, right ear (principal); I48.91 Unspecified atrial fibrillation; R51 Headache; R42 Dizziness and giddiness; I10 Essential (primary) hypertension; Z90.49 Acquired absence of other specified parts of digestive tract; Z95.0 Presence of cardiac pacemaker; Z86.19 Personal history of other infectious and parasitic diseases
CPT/HCPCS: 36415; 70450; 80053; 85025; 93005; 99284

== ENCOUNTER 2018-12-25 08:00 | Outpatient (CLI) | payer MEDICARE ==
[~2018-12-25 08:00] MED LIST changes: +CLAR-36 PO; -CLAR500T PO; -NITR0.4T SL; +NITR0.4T41 SL
== END 2018-12-25 23:59 | disposition home or self-care (01) ==
LOC: CARD 08:00
PROVIDERS: ATTEND Internal Medicine Cardiovascular Disease
DX: I25.5 Ischemic cardiomyopathy (principal); R06.02 Shortness of breath
CPT/HCPCS: 94010; 94726; 94729

== ENCOUNTER 2019-01-01 14:27 | Outpatient (CLI) | payer MEDICARE | END 2019-01-01 23:59 | disposition home or self-care (01) | LOC: CVU 14:27 | PROVIDERS: ATTEND Internal Medicine Cardiovascular Disease | DX: I08.8 Other rheumatic multiple valve diseases (principal); I25.5 Ischemic cardiomyopathy; I70.0 Atherosclerosis of aorta; I25.2 Old myocardial infarction; J44.9 Chronic obstructive pulmonary disease, unspecified; Z95.0 Presence of cardiac pacemaker | CPT/HCPCS: 0399T; 93306 ==

== ENCOUNTER 2019-04-04 15:38 | Outpatient (CLI) | payer MEDICARE | END 2019-04-04 23:59 | disposition home or self-care (01) | LOC: CFH 15:38 | PROVIDERS: ATTEND Internal Medicine Critical Care Medicine | DX: Z12.2 Encounter for screening for malignant neoplasm of respiratory organs (principal); J43.9 Emphysema, unspecified; R91.8 Other nonspecific abnormal finding of lung field; M51.34 Other intervertebral disc degeneration, thoracic region; Z87.891 Personal history of nicotine dependence | CPT/HCPCS: G0297 ==

== ENCOUNTER → 2019-09-17 | Outpatient (CLI) | payer MEDICARE ==
[~2019-09-17] MED LIST changes: +CLAR-14 PO; -CLAR-36 PO; +DILT240C47 PO; -DILT240C9 PO
== END | disposition home or self-care (01) ==
LOC: CVU 07:50
PROVIDERS: ATTEND Internal Medicine Cardiovascular Disease
DX: I65.23 Occlusion and stenosis of bilateral carotid arteries (principal); I08.0 Rheumatic disorders of both mitral and aortic valves; J44.9 Chronic obstructive pulmonary disease, unspecified; I25.2 Old myocardial infarction; I25.5 Ischemic cardiomyopathy; E78.2 Mixed hyperlipidemia; I25.10 Atherosclerotic heart disease of native coronary artery without angina pectoris; Z95.5 Presence of coronary angioplasty implant and graft; Z86.73 Personal history of transient ischemic attack (TIA), and cerebral infarction without residual deficits
CPT/HCPCS: 93306; 93880

== ENCOUNTER → 2019-12-24 | Outpatient (CLI) | payer MEDICARE ==
[2019-12-24 14:22] LABS: BASOPHILS # (AUTO) 0.03 x10^3/uL (0-0.1); BASOPHILS % (AUTO) 0 % (0-1); EOSINOPHILS # (AUTO) 0.13 x10^3/uL (0-0.4); EOSINOPHILS % (AUTO) 2 % (1-7); LYMPHOCYTES # (AUTO) 1.31 x10^3/uL (1-3.4); LYMPHOCYTES % (AUTO) 17 % (22-44); MD NO; MEAN CORPUSCULAR HEMOGLOBIN 30.6 pg (27.5-34.5); MEAN CORPUSCULAR HGB CONC 32.5 g/dL (33.2-36.2); MEAN CORPUSCULAR VOLUME 94.3 fL (81-97); MEAN PLATELET VOLUME 8.3 fL (7.4-10.4); MONOCYTES # (AUTO) 0.68 x10^3/uL (0.2-0.8); MONOCYTES % (AUTO) 9 % (2-9); NEUTROPHILS # (AUTO) 5.35 x10^3/uL (1.8-6.8); NEUTROPHILS % (AUTO) 72 % (42-75); PLATELET COUNT 160 x10^3/uL (130-400); RED BLOOD COUNT 4.47 x10^6/uL (4.38-5.82); RED CELL DISTRIBUTION WIDTH 14.5 % (9.4-14.8)
[2019-12-24 14:31] LABS: ALANINE AMINOTRANSFERASE 39 U/L (12-78); ALBUMIN 3.4 g/dL (3.4-5.0); ANION GAP 4 mmol/L (5-15); CALCIUM 8.7 mg/dL (8.5-10.1); CHLORIDE 112 mmol/L (98-107); CREATININE 1.12 mg/dL (0.7-1.3)
[2019-12-24 14:33] LABS: ALKALINE PHOSPHATASE 98 U/L (45-117); BILIRUBIN,TOTAL 0.5 mg/dL (0.2-1.0); TOTAL PROTEIN 6.8 g/dL (6.4-8.2)
== END | disposition home or self-care (01) ==
LOC: STAR 13:10
PROVIDERS: ATTEND Surgery
DX: Z01.818 Encounter for other preprocedural examination (principal); I65.21 Occlusion and stenosis of right carotid artery
CPT/HCPCS: 36415; 80053; 85025; 93005

== ENCOUNTER 2019-12-27 08:00 | Outpatient (CLI) | payer MEDICARE ==
[~2019-12-27] VITALS: Ht 177.8 cm; Wt 75.0 kg
== END 2019-12-27 23:59 | disposition home or self-care (01) ==
LOC: SDC 08:00 → EDSTATUS 12-31 17:00
PROVIDERS: ATTEND Surgery
DX: Z11.59 Encounter for screening for other viral diseases (principal)
CPT/HCPCS: 36415; 87635

== ENCOUNTER → 2020-01-11 | Outpatient (CLI) | payer MEDICARE | END | disposition home or self-care (01) | LOC: CFH 07:42 | PROVIDERS: ATTEND Internal Medicine Critical Care Medicine | DX: Z12.2 Encounter for screening for malignant neoplasm of respiratory organs (principal); J43.9 Emphysema, unspecified; R91.1 Solitary pulmonary nodule; J98.11 Atelectasis; J47.9 Bronchiectasis, uncomplicated; Z87.891 Personal history of nicotine dependence; Z90.49 Acquired absence of other specified parts of digestive tract | CPT/HCPCS: G0297 ==

== ENCOUNTER 2020-01-20 10:59 | Observation (INO) | payer MEDICARE ==
[~2020-01-20] VITALS: Ht 175.3 cm; Wt 75.1 kg
[~2020-01-20 10:59] MED LIST changes: -PANT40TA5 PO; +PANT40TA6 PO
--- NOTE | 2020-01-20 11:05 | NUR ---
PALMIRA RN: PT TOOK NTG X 1 HOURS AGO
[2020-01-20] MEDS ORDERED: MORPHINE SULFATE 4 MG/ML, 1ML ONE (11:22)
[2020-01-20] MEDS ORDERED: ONDANSETRON 2MG/ML, 2ML ONE (11:22)
[2020-01-20] MEDS ORDERED: MORPHINE SULFATE 4 MG/ML, 1ML IVPush PRN (11:30)
[2020-01-20] MEDS ORDERED: ONDANSETRON 2MG/ML, 2ML IVPush ONE (11:30)
[2020-01-20 11:44] LABS: BASOPHILS # (AUTO) 0.03 x10^3/uL (0-0.1); BASOPHILS % (AUTO) 1 % (0-1); EOSINOPHILS # (AUTO) 0.15 x10^3/uL (0-0.4); EOSINOPHILS % (AUTO) 2 % (1-7); LYMPHOCYTES % (AUTO) 20 % (22-44); MD NO; MEAN CORPUSCULAR HEMOGLOBIN 30.5 pg (27.5-34.5); MEAN CORPUSCULAR HGB CONC 32.6 g/dL (33.2-36.2); MEAN PLATELET VOLUME 8.3 fL (7.4-10.4); MONOCYTES # (AUTO) 0.51 x10^3/uL (0.2-0.8); MONOCYTES % (AUTO) 8 % (2-9); NEUTROPHILS % (AUTO) 69 % (42-75); PLATELET COUNT 160 x10^3/uL (130-400); RED BLOOD COUNT 4.46 x10^6/uL (4.38-5.82); RED CELL DISTRIBUTION WIDTH 14.7 % (9.4-14.8)
[2020-01-20 11:52] LABS: ALANINE AMINOTRANSFERASE 24 U/L (12-78); ALBUMIN 3.2 g/dL (3.4-5.0); ANION GAP 4 mmol/L (5-15); CALCIUM 8.7 mg/dL (8.5-10.1); CHLORIDE 113 mmol/L (98-107)
[2020-01-20 11:58] LABS: ALKALINE PHOSPHATASE 107 U/L (45-117); BILIRUBIN,TOTAL 0.6 mg/dL (0.2-1.0); TOTAL PROTEIN 6.5 g/dL (6.4-8.2); TROPONIN I < 0.015 ng/mL (0.000-0.045)
[2020-01-20] MEDS ORDERED: MAALOX/HYOSCYAMINE/LIDOCAINE 45 ML BTL ONE (12:23)
[2020-01-20] MEDS ORDERED: ASPIRIN 81 MG TABLET EC ONE ×2 (12:23→13:10)
[2020-01-20] MEDS ORDERED: ASPIRIN 325 MG TABLET PO ONE (12:30)
[2020-01-20] MEDS ORDERED: MAALOX/HYOSCYAMINE/LIDOCAINE 45 ML BTL PO ONE (12:30)
[2020-01-20] MEDS ORDERED: ONDANSETRON 2MG/ML, 2ML IVPush PRN (14:00)
[2020-01-20] MEDS ORDERED: NITROGLYCERIN 0.4 MG BOTTLE (25 TABS) SL PRN (14:00)
[2020-01-20] MEDS ORDERED: NITROGLYCERIN SINGLE TAB 0.4 MG SL PRN (14:00)
[2020-01-20] MEDS ORDERED: ACETAMINOPHEN 325 MG TABLET PO PRN (14:00)
[2020-01-20] MEDS ORDERED: NITROGLYCERIN 0.4 MG/SPRAY SL PRN (14:00)
[2020-01-20] MEDS ORDERED: ONDANSETRON ODT 4 MG PO PRN (14:00)
[2020-01-20] MEDS ORDERED: morphine SULFATE 10 MG/ML, 1ML IVPush PRN (14:00)
[2020-01-20] MEDS ORDERED: CITA20TA9 PO (14:47)
[2020-01-20 14:56] LABS: TROPONIN I < 0.015 ng/mL (0.000-0.045)
[2020-01-20 15:42] VITALS: BP 102/56
[2020-01-20] MEDS: HEPARIN 5,000 UNITS/ML, 1ML SQ SCH ×2 (17:21→23:32)
[2020-01-20] MEDS ORDERED: ATORVASTATIN 80 MG TABLET PO SCH (21:00)
[2020-01-20] MEDS ORDERED: LORazepam 1MG TABLET PO SCH (21:00)
[2020-01-20 21:02] VITALS: BP 100/55
[2020-01-20 22:25] LABS: TROPONIN I < 0.015 ng/mL (0.000-0.045)
[2020-01-20] MEDS ORDERED: PRAMIPEXOLE 0.5MG TABLET PO SCH (23:30)
[2020-01-20] MEDS: LISINOPRIL 10 MG TABLET PO SCH (23:40)
[2020-01-20] MEDS: CARVEDILOL 6.25 MG TABLET PO SCH (23:40)
[2020-01-20] MEDS: DOXAZOSIN 2MG TABLET PO SCH (23:40)
[2020-01-20 23:41] VITALS: BP 100/52
[2020-01-21 05:58] LABS: BASOPHILS # (AUTO) 0.03 x10^3/uL (0-0.1); BASOPHILS % (AUTO) 1 % (0-1); EOSINOPHILS # (AUTO) 0.21 x10^3/uL (0-0.4); EOSINOPHILS % (AUTO) 3 % (1-7); LYMPHOCYTES # (AUTO) 1.35 x10^3/uL (1-3.4); LYMPHOCYTES % (AUTO) 22 % (22-44); MD NO; MEAN CORPUSCULAR HEMOGLOBIN 30.9 pg (27.5-34.5); MEAN CORPUSCULAR HGB CONC 33.4 g/dL (33.2-36.2); MEAN PLATELET VOLUME 8.7 fL (7.4-10.4); MONOCYTES # (AUTO) 0.54 x10^3/uL (0.2-0.8); MONOCYTES % (AUTO) 9 % (2-9); NEUTROPHILS # (AUTO) 4.08 x10^3/uL (1.8-6.8); NEUTROPHILS % (AUTO) 66 % (42-75); PLATELET COUNT 146 x10^3/uL (130-400); RED BLOOD COUNT 4.46 x10^6/uL (4.38-5.82); RED CELL DISTRIBUTION WIDTH 14.5 % (9.4-14.8)
[2020-01-21 06:08] LABS: ANION GAP 5 mmol/L (5-15); CALCIUM 8.7 mg/dL (8.5-10.1); CHLORIDE 111 mmol/L (98-107); CREATININE 0.98 mg/dL (0.7-1.3)
[2020-01-21] MEDS: HEPARIN 5,000 UNITS/ML, 1ML SQ SCH ×2 (06:15→15:19)
[2020-01-21 07:15] VITALS: BP 160/72
[2020-01-21] MEDS: DOXAZOSIN 2MG TABLET PO SCH (08:45)
[2020-01-21] MEDS: CARVEDILOL 6.25 MG TABLET PO SCH (08:46)
[2020-01-21] MEDS: LISINOPRIL 10 MG TABLET PO SCH (08:49)
[2020-01-21] MEDS ORDERED: FUROSEMIDE 20 MG TABLET PO SCH (09:00)
[2020-01-21] MEDS ORDERED: CLOPIDOGREL 75 MG TABLET PO SCH (09:00)
[2020-01-21] MEDS ORDERED: ASPIRIN 81 MG TABLET CHEW PO SCH (09:00)
[2020-01-21] MEDS ORDERED: SPIRONOLACTONE 25 MG TABLET PO SCH (09:00)
[2020-01-21 12:52] VITALS: BP 124/60
[2020-01-21] MEDS ORDERED: REGADENOSON 0.4 MG/5 ML SYRINGE ONE (13:55)
== END 2020-01-21 18:55 | disposition home or self-care (01) ==
LOC: ED 13:30 → INTOOBSV 13:51 → EDIP 13:51 → 5SO 14:40
PROVIDERS: ADMIT Internal Medicine; ATTEND Internal Medicine
DX: R10.13 Epigastric pain (principal); I25.10 Atherosclerotic heart disease of native coronary artery without angina pectoris; I21.4 Non-ST elevation (NSTEMI) myocardial infarction; I25.5 Ischemic cardiomyopathy; I11.0 Hypertensive heart disease with heart failure; I50.9 Heart failure, unspecified; I35.2 Nonrheumatic aortic (valve) stenosis with insufficiency; I73.9 Peripheral vascular disease, unspecified; I65.21 Occlusion and stenosis of right carotid artery; R91.8 Other nonspecific abnormal finding of lung field; F17.210 Nicotine dependence, cigarettes, uncomplicated; Z85.21 Personal history of malignant neoplasm of larynx; Z86.19 Personal history of other infectious and parasitic diseases; Z95.0 Presence of cardiac pacemaker; Z79.899 Other long term (current) drug therapy; Z95.5 Presence of coronary angioplasty implant and graft
CPT/HCPCS: 36415; 71045; 78452; 80048; 80053; 83690; 84484; 85025; 93005; 93017; 93308; 93321; 93325; 96372; 96374; 96375; 99285; A9502; G0378; J1644; J2270; J2405; J2785

== ENCOUNTER → 2020-02-07 | Outpatient (CLI) | payer MEDICARE ==
[~2020-02-07] MED LIST changes: +CITA20TA9 PO; +PANT40TA5 PO; -PANT40TA6 PO
== END | disposition home or self-care (01) ==
LOC: PETCFH 07:32
PROVIDERS: ATTEND Internal Medicine
DX: R91.1 Solitary pulmonary nodule (principal); J43.9 Emphysema, unspecified
CPT/HCPCS: 78815; A9552

== ENCOUNTER → 2020-06-12 | Outpatient (CLI) | payer MEDICARE ==
[~2020-06-12] MED LIST changes: +DILT-88 PO; -DILT240C47 PO; +Entresto PO; -PANT40TA5 PO; +PANT40TA6 PO
[2020-06-12 13:54] LABS: BASOPHILS % (AUTO) 1 % (0-1); EOSINOPHILS % (AUTO) 3 % (1-7); LYMPHOCYTES % (AUTO) 22 % (22-44); MEAN CORPUSCULAR HEMOGLOBIN 31.5 pg (27.5-34.5); MEAN CORPUSCULAR HGB CONC 34.1 g/dL (33.2-36.2); MEAN PLATELET VOLUME 8.7 fL (7.4-10.4); MONOCYTES % (AUTO) 11 % (2-9); NEUTROPHILS % (AUTO) 63 % (42-75); PLATELET COUNT 170 x10^3/uL (130-400); RED BLOOD COUNT 4.47 x10^6/uL (4.38-5.82)
[2020-06-12 14:00] LABS: MD NO
[2020-06-12 14:06] LABS: ALBUMIN 3.5 g/dL (3.4-5.0); ANION GAP 3 mmol/L (5-15); CALCIUM 9.1 mg/dL (8.5-10.1); CHLORIDE 112 mmol/L (98-107)
[2020-06-12 14:11] LABS: ALANINE AMINOTRANSFERASE 22 U/L (12-78); ALKALINE PHOSPHATASE 94 U/L (45-117); BILIRUBIN,TOTAL 0.5 mg/dL (0.2-1.0); CREATININE 1.06 mg/dL (0.7-1.3); TOTAL PROTEIN 6.8 g/dL (6.4-8.2)
== END | disposition home or self-care (01) ==
LOC: STAR 12:27
PROVIDERS: ATTEND Surgery
DX: Z01.818 Encounter for other preprocedural examination (principal); I65.21 Occlusion and stenosis of right carotid artery; I51.7 Cardiomegaly; R94.31 Abnormal electrocardiogram [ECG] [EKG]; Z20.828 Contact with and (suspected) exposure to other viral communicable diseases
CPT/HCPCS: 80053; 85025; 87635; 93005

== ENCOUNTER 2020-06-20 10:20 | Observation (INO) | payer MEDICARE ==
[~2020-06-20] VITALS: Ht 177.8 cm; Wt 84.0 kg
[2020-06-20 11:00] LABS: BASOPHILS % (AUTO) 1 % (0-1); EOSINOPHILS % (AUTO) 1 % (1-7); LYMPHOCYTES % (AUTO) 16 % (22-44); MEAN CORPUSCULAR HEMOGLOBIN 31.6 pg (27.5-34.5); MEAN CORPUSCULAR HGB CONC 34.1 g/dL (33.2-36.2); MEAN PLATELET VOLUME 8.5 fL (7.4-10.4); MONOCYTES % (AUTO) 12 % (2-9); NEUTROPHILS % (AUTO) 71 % (42-75); PLATELET COUNT 135 x10^3/uL (130-400); RED BLOOD COUNT 4.04 x10^6/uL (4.38-5.82)
[2020-06-20] MEDS ORDERED: SODIUM CHLORIDE FLUSH 10ML SYR IVF ONE (11:00)
--- NOTE | 2020-06-20 11:01 | NUR ---
FIRST CONTACT WITH PT. PT SITTING UP IN [facility]I [place] NOTED. REPORTS INCREASING THROAT PAIN/SWELLING/SOB X LAST NIGHT. RELEASED FROM INPATIENT TUESDAY SP CAROTID ENDARTERECTOMY. DAUGHTER/PT REPORT INCREASED FLUID BUILD UP AND SWELLING OVER SURGICAL SITE SINCE LAST NIGHT. 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 NO DROOLING NOTED. BP/SPO2/ECG MONITORING IN PLACE. IV ESTABLISHED, LABS DRAWN. PT/DAUGHTER UPDATED TO POC (LAB/CT/RESULTS/RECHECK) AND DEMONSTRATE UNDERSTANDING.
[2020-06-20 11:05] LABS: MD NO
[2020-06-20 11:09] LABS: ALBUMIN 3.4 g/dL (3.4-5.0); ANION GAP 5 mmol/L (5-15); CALCIUM 8.4 mg/dL (8.5-10.1); CHLORIDE 114 mmol/L (98-107); CREATININE 0.95 mg/dL (0.7-1.3)
--- NOTE | 2020-06-20 11:22 | NUR ---
PT AMBULATED STEADILY TO BATHROOM WO DIFFICULTY.
--- NOTE | 2020-06-20 11:44 | NUR ---
PT SITTING AT EDGE OF BED REPORTING "MY LEGS ARE RESTLESS". BASELINE FOR PT. PACED RHYTHM ON MONITOR, RATE 60'S. AWAITING CT.
[2020-06-20] MEDS ORDERED: HYDROmorphone 1 MG/ML, 1ML INJ ONE (11:56)
[2020-06-20] MEDS ORDERED: HYDROmorphone 2 MG/ML, 1ML IVPush PRN (12:00)
--- NOTE | 2020-06-20 12:03 | NUR ---
PT MEDICATED PER EMAR FOR PAIN/RESTLESSNESS. TECH TRANSPORTED TO CT. ON 2L BY NC FOR SUPPORT WHILE OFF MONITORING.
[2020-06-20] MEDS ORDERED: OMNIPAQUE 350 MG/ML, 75ML BOTTLE ONE (12:17)
--- NOTE | 2020-06-20 12:50 | NUR ---
POC IS SURGERY. ALL CLOTHING REMOVED, PT IN GOWN. CLOTHES AND VALUABLES GIVEN TO DAUGHTER. Addendum: 06/20/20 at 1333 by LESLI PT REPORTS IMPROVED RESTLESSNESS/DISCOMFORT WITH PAIN MEDICATIONS.
--- NOTE | 2020-06-20 13:30 | NUR ---
REPORT TO PROMOTIONS DIRECTOR.
[2020-06-20] MEDS ORDERED: FENTANYL PF 100 MCG/2ML ONE ×2 (13:33→15:00)
[2020-06-20] MEDS ORDERED: MIDAZOLAM 1 MG/ML, 2ML ONE (13:33)
[2020-06-20] MEDS ORDERED: THROMBIN 5,000 UNIT VIAL TP ONE (13:42)
[2020-06-20] MEDS ORDERED: BUPIVACAINE/PF 0.5% ONE (13:42)
[2020-06-20] MEDS ORDERED: EPINEPHRINE 1 MG/ML, 1ML ONE (13:42)
[2020-06-20] MEDS ORDERED: CEFAZOLIN 1,000 MG ONE (14:03)
[2020-06-20] MEDS ORDERED: SUCCINYLCHOLINE 20 MG/ML, 10ML ONE (14:03)
[2020-06-20] MEDS ORDERED: ONDANSETRON 2MG/ML, 2ML ONE (14:03)
[2020-06-20] MEDS ORDERED: DEXAMETHASONE 4 MG/ML, 5ML ONE (14:03)
[2020-06-20] MEDS ORDERED: ROCURONIUM 10MG/ML,5ML ONE (14:03)
[2020-06-20] MEDS ORDERED: LIDOCAINE-MPF 2% ,5ML ONE (14:03)
[2020-06-20] MEDS ORDERED: PROPOFOL 10 MG/ML, 20ML ONE (14:03)
[2020-06-20] MEDS ORDERED: BACITRACIN 50,000 UNIT ONE (14:19)
[2020-06-20] MEDS ORDERED: PROMETHAZINE 25 MG/ML, 1ML IVPush PRN ×2 (14:30→17:00)
[2020-06-20] MEDS ORDERED: MEPERIDINE/PF 25MG/0.5ML IVPush PRN ×2 (14:30→17:00)
[2020-06-20] MEDS ORDERED: HYDROmorphone 1 MG/ML, 1ML INJ IVPush PRN ×2 (14:30→17:00)
[2020-06-20] MEDS ORDERED: OXYcodone 5 MG/5 ML ORAL.SOL UDC PO PRN ×2 (14:30→17:00)
[2020-06-20] MEDS ORDERED: HYDROcodone/APAP 7.5-325MG/15ML UDC PO PRN ×2 (14:30→17:00)
[2020-06-20] MEDS: FENTANYL PF 100 MCG/2ML IV PRN ×2 (15:00→15:10)
[2020-06-20] MEDS ORDERED: OXYcodone 5 MG/5 ML ORAL.SOL UDC ONE (15:01)
[2020-06-20 15:42] VITALS: BP 151/64
[2020-06-20] MEDS ORDERED: HYDROcodone/APAP 5/325 TABLET PO PRN (16:00)
[2020-06-20] MEDS ORDERED: ONDANSETRON 2MG/ML, 2ML IV PRN (16:00)
[2020-06-20] MEDS ORDERED: ACETAMINOPHEN 325 MG TABLET PO PRN ×2 (16:00→16:30)
[2020-06-20] MEDS ORDERED: LABETALOL 5MG/ML, 20ML IVPush PRN ×2 (16:00→16:30)
[2020-06-20] MEDS ORDERED: morphine SULFATE 10 MG/ML, 1ML IV PRN ×2 (16:00→18:00)
[2020-06-20] MEDS ORDERED: LACTATED RINGERS 1,000 ML IV SCH (16:00)
[2020-06-20] MEDS ORDERED: hydrALAzine 20 MG/ML, 1ML IV PRN (16:00)
[2020-06-20] MEDS ORDERED: GUAIFENESIN/DM 200-20MG, 10ML UDC PO PRN (16:30)
[2020-06-20] MEDS ORDERED: MELATONIN 5 MG TABLET PO PRN (16:30)
[2020-06-20] MEDS ORDERED: ONDANSETRON 2MG/ML, 2ML IVPush PRN (16:30)
[2020-06-20] MEDS ORDERED: ENALAPRILAT 1.25 MG/ML, 2ML IVPush PRN (16:30)
[2020-06-20] MEDS ORDERED: ONDANSETRON ODT 4 MG PO PRN (16:30)
[2020-06-20] MEDS ORDERED: POLYETHYLENE GLYCOL 17 GM PACKET PO PRN (16:30)
[2020-06-20] MEDS: CARVEDILOL 12.5 MG TABLET PO SCH (16:57)
[2020-06-20] MEDS: AMPICILLIN/SULBACTAM 3 GM in SODIUM CHLORIDE 0.9% 100 ML IV SCH ×2 (16:58→22:25)
[2020-06-20] MEDS ORDERED: HEPARIN 5,000 UNITS/ML, 1ML SQ SCH (17:00)
[2020-06-20] MEDS ORDERED: FENTANYL PF 100 MCG/2ML IV PRN (17:00)
[2020-06-20 17:35] LABS: ANION GAP 3 mmol/L (5-15); CALCIUM 8.5 mg/dL (8.5-10.1); CHLORIDE 110 mmol/L (98-107); CREATININE 0.97 mg/dL (0.7-1.3)
[2020-06-20] MEDS ORDERED: NITROGLYCERIN 0.4 MG BOTTLE (25 TABS) SL PRN (18:00)
[2020-06-20 18:33] VITALS: BP 118/66
[2020-06-20] MEDS ORDERED: CARVEDILOL 12.5 MG TABLET PO SCH (21:00)
[2020-06-20] MEDS: SODIUM CHLORIDE FLUSH 10ML SYR IVF SCH ×2 (21:00→21:45)
[2020-06-20] MEDS: ENTRESTO HOMEMEDPO SCH (21:00)
[2020-06-20] MEDS ORDERED: PRAMIPEXOLE 0.5MG TABLET PO SCH (21:00)
[2020-06-20] MEDS ORDERED: ATORVASTATIN 80 MG TABLET PO SCH ×2 (21:00)
[2020-06-21 00:16] VITALS: BP 138/68
[2020-06-21 03:45] VITALS: BP 146/65
[2020-06-21] MEDS: AMPICILLIN/SULBACTAM 3 GM in SODIUM CHLORIDE 0.9% 100 ML IV SCH ×2 (03:49→10:19)
[2020-06-21 04:48] LABS: BASOPHILS % (AUTO) 0 % (0-1); EOSINOPHILS % (AUTO) 0 % (1-7); LYMPHOCYTES % (AUTO) 11 % (22-44); MEAN CORPUSCULAR HEMOGLOBIN 31.5 pg (27.5-34.5); MEAN CORPUSCULAR HGB CONC 34.1 g/dL (33.2-36.2); MEAN PLATELET VOLUME 9.2 fL (7.4-10.4); MONOCYTES % (AUTO) 6 % (2-9); NEUTROPHILS % (AUTO) 83 % (42-75); PLATELET COUNT 129 x10^3/uL (130-400); RED CELL DISTRIBUTION WIDTH 15.4 % (9.4-14.8)
[2020-06-21 04:52] LABS: MD NO
[2020-06-21 04:53] LABS: CHLORIDE 110 mmol/L (98-107)
[2020-06-21 05:04] LABS: ALANINE AMINOTRANSFERASE 9 U/L (12-78); ALKALINE PHOSPHATASE 99 U/L (45-117); ANION GAP 3 mmol/L (5-15); BILIRUBIN,TOTAL 0.4 mg/dL (0.2-1.0); CHOL/HDL RATIO 1.9; CHOLESTEROL, TOTAL 110 mg/dL (140-239); CREATININE 1.02 mg/dL (0.7-1.3); HDL CHOL % 54 % (26-37); HDL CHOLESTEROL (DIRECT) 59 mg/dL (40-60); LDL CHOLESTEROL,CALCULATED 39 mg/dL (54-169); LDL/HDL RATIO 0.7 (0.5-3.0); TOTAL PROTEIN 6.3 g/dL (6.4-8.2); TRIGLYCERIDES 62 mg/dL (50-200); VLDL CHOLESTEROL 12 mg/dL (0-25)
[2020-06-21 05:44] VITALS: BP 160/61
[2020-06-21] MEDS: CARVEDILOL 12.5 MG TABLET PO SCH (05:45)
[2020-06-21 06:50] VITALS: BP 161/56
[2020-06-21] MEDS ORDERED: FUROSEMIDE 40 MG/4 ML IV ONE (07:00)
[2020-06-21] MEDS: SODIUM CHLORIDE FLUSH 10ML SYR IVF SCH ×2 (08:07→08:08)
[2020-06-21] MEDS: ENTRESTO HOMEMEDPO SCH (08:08)
[2020-06-21] MEDS ORDERED: FINASTERIDE 5 MG TABLET PO SCH ×2 (09:00)
[2020-06-21] MEDS ORDERED: FUROSEMIDE 20 MG TABLET PO SCH (09:00)
[2020-06-21] MEDS ORDERED: CLOPIDOGREL 75 MG TABLET PO SCH ×2 (09:00)
[2020-06-21] MEDS ORDERED: CITALOPRAM 20 MG TABLET PO SCH ×2 (09:00)
[2020-06-21] MEDS ORDERED: SPIRONOLACTONE 25 MG TABLET PO SCH ×2 (09:00)
[2020-06-21 12:20] VITALS: BP 146/62
[2020-06-21] MEDS ORDERED: AMOX1TAB64 PO (14:21)
[2020-07-05] MEDS ORDERED: OXYC5SOL8 PO (09:59)
[2020-07-05] MEDS ORDERED: ACET-1600 PO (09:59)
[2020-07-05] MEDS ORDERED: IBUP-1223 PO ×2 (09:59)
== END 2020-06-21 14:56 | disposition home or self-care (01) ==
LOC: ED 10:55 → 4NE 15:28 → SUATTDRO 15:47 → ED 16:37 → 4NE 16:38 → INTOOBSV 16:38 → DCLOUNGE 06-21 14:32
PROVIDERS: ADMIT Hospitalist; ATTEND Hospitalist
DX: L76.34 Postprocedural seroma of skin and subcutaneous tissue following other procedure (principal); I65.21 Occlusion and stenosis of right carotid artery; I48.91 Unspecified atrial fibrillation; I10 Essential (primary) hypertension; E78.5 Hyperlipidemia, unspecified; J44.9 Chronic obstructive pulmonary disease, unspecified; N40.0 Benign prostatic hyperplasia without lower urinary tract symptoms; Z92.3 Personal history of irradiation; I25.5 Ischemic cardiomyopathy; I73.9 Peripheral vascular disease, unspecified; I35.1 Nonrheumatic aortic (valve) insufficiency; I21.4 Non-ST elevation (NSTEMI) myocardial infarction; I25.10 Atherosclerotic heart disease of native coronary artery without angina pectoris; Z85.21 Personal history of malignant neoplasm of larynx; Z79.899 Other long term (current) drug therapy; Z95.0 Presence of cardiac pacemaker; Z87.891 Personal history of nicotine dependence
CPT/HCPCS: 10140; 36415; 70491; 71045; 80048; 80053; 80061; 82040; 83735; 83880; 84100; 84443; 85025; 86850; 86900; 96365; 96366; 96372; 96375; 99285; G0378; J0295; J0330; J0690; J1100; J1170; J1644; J1940; J2250; J2405; J2704; J3010; J3490; Q9967; S0020; 96374; J0171

== ENCOUNTER 2020-07-06 05:57 | Inpatient (IN) | payer MEDICARE ==
[~2020-07-06] VITALS: Ht 177.8 cm; Wt 74.1 kg
[~2020-07-06 05:57] MED LIST changes: +ACET-1600 PO; +AMOX1TAB64 PO; +IBUP-1223 PO; +OXYC5SOL8 PO
--- NOTE | 2020-07-06 06:33 | NUR ---
pt walked to room per request. remains short of breath and difficulty breathing. continues to make statements like he feels "its coming", as the respiratory effort increased. pt states he's scared of what is happening. Pt placed in [facility] [place], placed on cr monitor, and MD called to room quickly. Dr. Villa to see pt, and assessed. stat ekg done, and sent to MD. piv started to left forearm x1 attempt, 18g, and blood drawn at same time.
[2020-07-06 06:34] LABS: BASOPHILS % (AUTO) 1 % (0-1); EOSINOPHILS % (AUTO) 2 % (1-7); LYMPHOCYTES % (AUTO) 14 % (22-44); MEAN CORPUSCULAR HEMOGLOBIN 31.2 pg (27.5-34.5); MEAN CORPUSCULAR HGB CONC 33.9 g/dL (33.2-36.2); MEAN PLATELET VOLUME 8.4 fL (7.4-10.4); MONOCYTES % (AUTO) 10 % (2-9); NEUTROPHILS % (AUTO) 73 % (42-75); PLATELET COUNT 174 x10^3/uL (130-400); RED BLOOD COUNT 3.97 x10^6/uL (4.38-5.82); RED CELL DISTRIBUTION WIDTH 15.1 % (9.4-14.8)
--- NOTE | 2020-07-06 06:34 | NUR ---
fresh foods technician to bedside to do portable cxry. pt in less resp distress than when he came to triage. o2 sats on o2 nc 2 lpm is 97%
[2020-07-06 06:38] LABS: MD NO
[2020-07-06 06:45] LABS: INTERNATIONAL NORMALIZED RATIO 1.05 (0.93-1.1); PROTHROMBIN TIME 11.1 Seconds (9.6-11.5)
[2020-07-06 06:46] LABS: ALANINE AMINOTRANSFERASE 19 U/L (12-78); ALBUMIN 3.3 g/dL (3.4-5.0); ANION GAP 5 mmol/L (5-15); CALCIUM 8.9 mg/dL (8.5-10.1); CHLORIDE 109 mmol/L (98-107); CREATININE 0.89 mg/dL (0.7-1.3)
--- NOTE | 2020-07-06 06:48 | NUR ---
report and care to seble TIERNEY.
[2020-07-06 06:51] LABS: ALKALINE PHOSPHATASE 113 U/L (45-117); BILIRUBIN,TOTAL 0.6 mg/dL (0.2-1.0); TOTAL PROTEIN 6.8 g/dL (6.4-8.2); TROPONIN I < 0.015 ng/mL (0.000-0.045)
--- NOTE | 2020-07-06 06:55 | NUR ---
REPORT FROM JASON
--- NOTE | 2020-07-06 07:19 | NUR ---
PT STOOD BEDSIDE TO VOID IN URINAL
[2020-07-06] MEDS ORDERED: FUROSEMIDE 20 MG/2 ML ONE (07:51)
[2020-07-06] MEDS ORDERED: FUROSEMIDE 20 MG/2 ML IV ONE (08:00)
--- NOTE | 2020-07-06 09:33 | NUR ---
REPORT TO AURE
[2020-07-06 09:40] VITALS: BP 128/60
[2020-07-06] MEDS ORDERED: POLYETHYLENE GLYCOL 17 GM PACKET PO PRN (10:00)
[2020-07-06] MEDS ORDERED: DOCUSATE 100 MG CAPSULE PO PRN (10:00)
[2020-07-06] MEDS ORDERED: BISACODYL 10 MG SUPP PR PRN (10:00)
[2020-07-06] MEDS ORDERED: OMNIPAQUE 350 MG/ML, 75ML BOTTLE ONE (10:24)
[2020-07-06 11:48] LABS: TROPONIN I < 0.015 ng/mL (0.000-0.045)
[2020-07-06 13:32] VITALS: BP 119/61
[2020-07-06] MEDS: PIPERACILLIN/TAZO/PMX 3.375GM 50 ML IV SCH ×2 (16:27→23:15)
[2020-07-06] MEDS: CARVEDILOL 12.5 MG TABLET PO SCH (21:20)
[2020-07-06] MEDS: ATORVASTATIN 80 MG TABLET PO SCH (21:20)
[2020-07-06 21:21] VITALS: BP 123/65
[2020-07-07 01:17] VITALS: BP 125/62
[2020-07-07 06:35] LABS: ALBUMIN 3.2 g/dL (3.4-5.0); ANION GAP 5 mmol/L (5-15); CHLORIDE 110 mmol/L (98-107)
[2020-07-07 06:49] LABS: ALANINE AMINOTRANSFERASE 17 U/L (12-78); ALKALINE PHOSPHATASE 107 U/L (45-117); BASOPHILS % (AUTO) 1 % (0-1); BILIRUBIN,TOTAL 0.7 mg/dL (0.2-1.0); CREATININE 0.92 mg/dL (0.7-1.3); EOSINOPHILS % (AUTO) 2 % (1-7); LYMPHOCYTES % (AUTO) 15 % (22-44); MEAN CORPUSCULAR HEMOGLOBIN 31.1 pg (27.5-34.5); MEAN CORPUSCULAR HGB CONC 33.9 g/dL (33.2-36.2); MEAN PLATELET VOLUME 8.7 fL (7.4-10.4); MONOCYTES % (AUTO) 12 % (2-9); NEUTROPHILS % (AUTO) 70 % (42-75); PLATELET COUNT 163 x10^3/uL (130-400); RED BLOOD COUNT 3.88 x10^6/uL (4.38-5.82); RED CELL DISTRIBUTION WIDTH 15.2 % (9.4-14.8); TOTAL PROTEIN 6.4 g/dL (6.4-8.2)
[2020-07-07 06:53] LABS: MD NO
[2020-07-07] MEDS: FINASTERIDE 5 MG TABLET PO SCH (08:04)
[2020-07-07] MEDS: CITALOPRAM 20 MG TABLET PO SCH (08:05)
[2020-07-07] MEDS: CARVEDILOL 12.5 MG TABLET PO SCH ×2 (08:05→21:13)
[2020-07-07] MEDS: CLOPIDOGREL 75 MG TABLET PO SCH (08:05)
[2020-07-07 09:29] VITALS: BP 132/61
[2020-07-07] MEDS ORDERED: FUROSEMIDE 20 MG/2 ML IV ONE (10:00)
[2020-07-07] MEDS: PIPERACILLIN/TAZO/PMX 3.375GM 50 ML IV SCH ×2 (10:27→18:27)
[2020-07-07 12:34] VITALS: BP 164/65
[2020-07-07] MEDS ORDERED: SACU1TAB4 PO (13:31)
[2020-07-07] MEDS: ACETAMINOPHEN 325 MG TABLET PO PRN (14:58)
[2020-07-07] MEDS: POTASSIUM CHLORIDE 20 MEQ TAB.ER.PRT PO SCH (17:34)
[2020-07-07] MEDS: FUROSEMIDE 40 MG/4 ML IV SCH (17:35)
[2020-07-07] MEDS: PRAMIPEXOLE 1 MG TAB HOMEMEDPO SCH (21:00)
[2020-07-07] MEDS: (Sacubitril/Valsartan (Entresto 97 mg-103 mg Tablet) 1 TAB) HOMEMEDPO SCH (21:00)
[2020-07-07] MEDS ORDERED: PRAMIPEXOLE 0.5MG TABLET PO SCH ×2 (21:00)
[2020-07-07 21:10] VITALS: BP 123/57
[2020-07-07] MEDS: ATORVASTATIN 80 MG TABLET PO SCH (21:13)
[2020-07-07] MEDS ORDERED: TEMAZEPAM 15 MG CAPSULE PO PRN (21:30)
[2020-07-08 00:40] VITALS: BP 134/67
[2020-07-08] MEDS: PIPERACILLIN/TAZO/PMX 3.375GM 50 ML IV SCH ×3 (01:50→18:32)
[2020-07-08 07:12] VITALS: BP 137/67
[2020-07-08] MEDS: FUROSEMIDE 40 MG/4 ML IV SCH ×2 (07:30→17:13)
[2020-07-08] MEDS: POTASSIUM CHLORIDE 20 MEQ TAB.ER.PRT PO SCH ×2 (08:36→17:13)
[2020-07-08] MEDS: CLOPIDOGREL 75 MG TABLET PO SCH (08:36)
[2020-07-08] MEDS: (Sacubitril/Valsartan (Entresto 97 mg-103 mg Tablet) 1 TAB) HOMEMEDPO SCH ×2 (08:37→20:36)
[2020-07-08] MEDS: SPIRONOLACTONE 25 MG TABLET PO SCH (08:37)
[2020-07-08] MEDS: CITALOPRAM 20 MG TABLET PO SCH (08:37)
[2020-07-08] MEDS: CARVEDILOL 12.5 MG TABLET PO SCH ×2 (08:37→20:37)
[2020-07-08] MEDS: FINASTERIDE 5 MG TABLET PO SCH (08:43)
[2020-07-08] MEDS: ACETAMINOPHEN 325 MG TABLET PO PRN (10:47)
[2020-07-08 12:50] VITALS: BP 106/57
[2020-07-08 14:24] LABS: TROPONIN I < 0.015 ng/mL (0.000-0.045)
[2020-07-08] MEDS: LORazepam 0.5MG TABLET PO PRN (17:13)
[2020-07-08 20:31] VITALS: BP 87/49
[2020-07-08] MEDS: PRAMIPEXOLE 1 MG TAB HOMEMEDPO SCH (20:37)
[2020-07-08] MEDS: ATORVASTATIN 80 MG TABLET PO SCH (20:37)
[2020-07-08 20:53] LABS: TROPONIN I < 0.015 ng/mL (0.000-0.045)
[2020-07-09 00:03] VITALS: BP 114/55
[2020-07-09] MEDS: LORazepam 0.5MG TABLET PO PRN ×2 (02:27→11:02)
[2020-07-09] MEDS: PIPERACILLIN/TAZO/PMX 3.375GM 50 ML IV SCH ×2 (02:32→10:57)
[2020-07-09 07:02] VITALS: BP 118/68
[2020-07-09 07:40] LABS: BASOPHILS % (AUTO) 1 % (0-1); EOSINOPHILS % (AUTO) 3 % (1-7); LYMPHOCYTES % (AUTO) 19 % (22-44); MEAN CORPUSCULAR HEMOGLOBIN 31.3 pg (27.5-34.5); MEAN CORPUSCULAR HGB CONC 33.8 g/dL (33.2-36.2); MEAN PLATELET VOLUME 8.8 fL (7.4-10.4); MONOCYTES % (AUTO) 13 % (2-9); NEUTROPHILS % (AUTO) 65 % (42-75); PLATELET COUNT 224 x10^3/uL (130-400); RED BLOOD COUNT 4.47 x10^6/uL (4.38-5.82)
[2020-07-09 07:44] LABS: MD NO
[2020-07-09 07:54] LABS: ALANINE AMINOTRANSFERASE 25 U/L (12-78); ALBUMIN 3.6 g/dL (3.4-5.0); ANION GAP 5 mmol/L (5-15); CALCIUM 9.2 mg/dL (8.5-10.1); CHLORIDE 107 mmol/L (98-107); CREATININE 1.23 mg/dL (0.7-1.3)
[2020-07-09 07:56] LABS: ALKALINE PHOSPHATASE 111 U/L (45-117); BILIRUBIN,TOTAL 0.9 mg/dL (0.2-1.0); TOTAL PROTEIN 7.5 g/dL (6.4-8.2)
[2020-07-09] MEDS: FUROSEMIDE 40 MG/4 ML IV SCH (08:23)
[2020-07-09] MEDS: SPIRONOLACTONE 25 MG TABLET PO SCH (08:24)
[2020-07-09] MEDS: POTASSIUM CHLORIDE 20 MEQ TAB.ER.PRT PO SCH (08:24)
[2020-07-09] MEDS: CLOPIDOGREL 75 MG TABLET PO SCH (08:24)
[2020-07-09] MEDS: CITALOPRAM 20 MG TABLET PO SCH (08:24)
[2020-07-09] MEDS: CARVEDILOL 12.5 MG TABLET PO SCH (08:24)
[2020-07-09] MEDS: FINASTERIDE 5 MG TABLET PO SCH (08:33)
[2020-07-09] MEDS: (Sacubitril/Valsartan (Entresto 97 mg-103 mg Tablet) 1 TAB) HOMEMEDPO SCH (08:33)
[2020-07-09 12:04] VITALS: BP 124/83
[2020-07-09] MEDS ORDERED: CEFD300C37 PO (14:32)
[2020-07-09] MEDS ORDERED: DOXY100T PO (14:32)
[2020-07-09] MEDS ORDERED: LORA-445 PO (14:32)
[2020-07-09] MEDS ORDERED: FURO20TA3 PO (14:32)
== END 2020-07-09 15:50 | disposition home or self-care (01) | DRG 291 ==
LOC: ED 07:24 → EDIP 07:53 → 5SO 09:37 → DCLOUNGE 07-09 15:36
PROVIDERS: ADMIT Family Medicine; ATTEND Family Medicine
DX: I11.0 Hypertensive heart disease with heart failure (principal); I50.21 Acute systolic (congestive) heart failure; J96.01 Acute respiratory failure with hypoxia; J18.9 Pneumonia, unspecified organism; J93.9 Pneumothorax, unspecified; D68.69 Other thrombophilia; Z88.1 Allergy status to other antibiotic agents; Z88.5 Allergy status to narcotic agent; B18.2 Chronic viral hepatitis C; D64.9 Anemia, unspecified; E78.5 Hyperlipidemia, unspecified; F17.290 Nicotine dependence, other tobacco product, uncomplicated; I25.10 Atherosclerotic heart disease of native coronary artery without angina pectoris; I35.2 Nonrheumatic aortic (valve) stenosis with insufficiency; I48.91 Unspecified atrial fibrillation; J43.9 Emphysema, unspecified; N40.0 Benign prostatic hyperplasia without lower urinary tract symptoms; Z79.02 Long term (current) use of antithrombotics/antiplatelets; Z85.21 Personal history of malignant neoplasm of larynx; Z92.21 Personal history of antineoplastic chemotherapy; Z92.3 Personal history of irradiation; Z95.5 Presence of coronary angioplasty implant and graft
CPT/HCPCS: 36415; 36600; 71045; 71046; 71275; 80053; 83735; 83880; 84100; 84145; 84443; 84484; 85025; 85610; 85730; 87040; 93005; 93306; 96374; 99285; G0378; J1940; J2543; Q9967

== ENCOUNTER → 2020-07-22 | Outpatient (CLI) | payer MEDICARE ==
[~2020-07-22] MED LIST changes: -ASPI-515 PO; +ASPI-963 PO; +CEFD300C37 PO; +DOXY100T PO; +LORA-445 PO; +SACU1TAB4 PO
== END | disposition home or self-care (01) ==
LOC: RAD 11:11
PROVIDERS: ATTEND Family Medicine
DX: M43.26 Fusion of spine, lumbar region (principal); M79.10 Myalgia, unspecified site; M25.59 Pain in other specified joint; W01.0XXA Fall on same level from slipping, tripping and stumbling without subsequent striking against object, initial encounter
CPT/HCPCS: 73523

== ENCOUNTER 2020-09-26 08:36 | Outpatient (CLI) | payer MEDICARE | END 2020-09-26 23:59 | disposition home or self-care (01) | LOC: CVU 08:36 | PROVIDERS: ATTEND Surgery | DX: I65.23 Occlusion and stenosis of bilateral carotid arteries (principal) | CPT/HCPCS: 93880 ==

== ENCOUNTER 2020-10-12 04:11 | Observation (INO) | payer MEDICARE ==
[~2020-10-12] VITALS: Ht 177.8 cm; Wt 78.2 kg
--- NOTE | 2020-10-12 04:30 | NUR ---
PT TO ED C/O HTN, STATES FOR PAST DAY BP HAS BEEN 180'S/80. PT STATES HE HASNT BEEN ABLE TO SLEEP D/T H/A, DIZZINESS & ABD PAIN. PT STATES HE TOOK HIS MEDS AT 0300 THIS AM. PT ON MONITORS. PACER NOTED. PIV ESTB C LABS. TBS. WILL CTM.
[2020-10-12] MEDS ORDERED: ASPIRIN 81 MG TABLET CHEW ONE (05:00)
[2020-10-12] MEDS ORDERED: ASPIRIN 81 MG TABLET CHEW PO ONE (05:00)
[2020-10-12] MEDS ORDERED: SODIUM CHLORIDE FLUSH 10ML SYR IVF ONE (05:00)
--- NOTE | 2020-10-12 05:02 | NUR ---
PT TO XRAY
[2020-10-12 05:37] LABS: BASOPHILS % (AUTO) 1 % (0-1); EOSINOPHILS % (AUTO) 3 % (1-7); LYMPHOCYTES % (AUTO) 21 % (22-44); MEAN CORPUSCULAR HEMOGLOBIN 31.2 pg (27.5-34.5); MEAN CORPUSCULAR HGB CONC 33.7 g/dL (33.2-36.2); MEAN PLATELET VOLUME 9.1 fL (7.4-10.4); MONOCYTES % (AUTO) 11 % (2-9); NEUTROPHILS % (AUTO) 64 % (42-75); PLATELET COUNT 157 x10^3/uL (130-400); RED BLOOD COUNT 4.41 x10^6/uL (4.38-5.82); RED CELL DISTRIBUTION WIDTH 14.4 % (9.4-14.8)
[2020-10-12 05:40] LABS: ALANINE AMINOTRANSFERASE 23 U/L (12-78); ALBUMIN 3.5 g/dL (3.4-5.0); ANION GAP 5 mmol/L (5-15); CALCIUM 8.8 mg/dL (8.5-10.1); CHLORIDE 107 mmol/L (98-107)
[2020-10-12 05:45] LABS: ALKALINE PHOSPHATASE 105 U/L (45-117); BILIRUBIN,TOTAL 0.7 mg/dL (0.2-1.0); CREATININE 0.87 mg/dL (0.7-1.3); TOTAL PROTEIN 6.8 g/dL (6.4-8.2); TROPONIN I < 0.015 ng/mL (0.000-0.045)
--- NOTE | 2020-10-12 06:08 | NUR ---
PT RESTING ON CART, RR EVEN NON LABORED. URINE SAMPLE PROVIDED. WILL CTM.
[2020-10-12 06:12] LABS: MICROSCOPIC AUTO
[2020-10-12] MEDS ORDERED: SACU1TAB PO (06:54)
[2020-10-12] MEDS ORDERED: ZINC (06:57)
[2020-10-12] MEDS ORDERED: FINA5TAB4 PO (06:57)
[2020-10-12] MEDS ORDERED: CHOL10003 PO (06:57)
--- NOTE | 2020-10-12 07:11 | NUR ---
report from merrill oswald. pt resting comfortably in bed. nadn. smith.
[2020-10-12] MEDS ORDERED: CEFTRIAXONE 1,000 MG in DEXTROSE 5% 50 ML IVPB ONE (07:30)
[2020-10-12] MEDS ORDERED: FUROSEMIDE 40 MG/4 ML IV ONE (07:30)
[2020-10-12] MEDS ORDERED: FUROSEMIDE 40 MG/4 ML ONE (07:39)
--- NOTE | 2020-10-12 07:49 | NUR ---
PT MEDICATED PER EMAR. PER DR. SILVERIO NO BC TO BE DRAWN BEFORE ANTIBIOTIC ADMIN. PT RESTING IN BED. VSS.
[2020-10-12] MEDS ORDERED: SODIUM CHLORIDE FLUSH 10ML SYR IVF PRN (08:00)
--- NOTE | 2020-10-12 08:18 | NUR ---
REPORT CALLED TO FLYNN TIERNEY. DR. GARAY AT BEDSIDE FOR EVALUAITON.
--- NOTE | 2020-10-12 08:56 | NUR ---
AWAITING TRANSFER. PT ASLEEP WITH EVEN AND UNLABORED RR. VSS. NADN.
[2020-10-12] MEDS ORDERED: LABETALOL 5MG/ML, 20ML IVPush PRN (09:00)
[2020-10-12] MEDS ORDERED: NITROGLYCERIN 0.4 MG/SPRAY SL PRN (09:00)
[2020-10-12] MEDS ORDERED: NITROGLYCERIN 0.4 MG BOTTLE (25 TABS) SL PRN (09:00)
[2020-10-12] MEDS ORDERED: ENALAPRILAT 1.25 MG/ML, 2ML IVPush PRN (09:00)
[2020-10-12] MEDS ORDERED: DOCUSATE 100 MG CAPSULE PO PRN (09:00)
[2020-10-12] MEDS ORDERED: POLYETHYLENE GLYCOL 17 GM PACKET PO PRN (09:00)
[2020-10-12] MEDS ORDERED: ONDANSETRON 2MG/ML, 2ML IVPush PRN (09:00)
[2020-10-12] MEDS ORDERED: OMNIPAQUE 350 MG/ML, 100ML BOTTLE ONE (10:28)
[2020-10-12] MEDS: CITALOPRAM 20 MG TABLET PO SCH (11:04)
[2020-10-12 11:06] VITALS: BP 172/66
[2020-10-12 11:09] LABS: TROPONIN I < 0.015 ng/mL (0.000-0.045)
[2020-10-12] MEDS: CLOPIDOGREL 75 MG TABLET PO SCH (11:10)
[2020-10-12] MEDS: CARVEDILOL 12.5 MG TABLET PO SCH ×2 (11:10→21:07)
[2020-10-12] MEDS: SPIRONOLACTONE 25 MG TABLET PO SCH (11:10)
[2020-10-12] MEDS: CHOLECALCIFEROL 1,000 UNIT TABLET PO SCH (11:10)
[2020-10-12] MEDS: SACUBITRIL/VALSARTAN 24MG-26MG TAB PO SCH (11:10)
[2020-10-12] MEDS: FINASTERIDE 5 MG TABLET PO SCH (11:10)
[2020-10-12] MEDS: ENOXAPARIN 40 MG/0.4 ML SQ SCH (11:13)
[2020-10-12 14:06] VITALS: BP 155/66
[2020-10-12 17:38] LABS: TROPONIN I < 0.015 ng/mL (0.000-0.045)
[2020-10-12] MEDS: FUROSEMIDE 20 MG/2 ML IV SCH (18:01)
[2020-10-12] MEDS: ACETAMINOPHEN 325 MG TABLET PO PRN (18:15)
[2020-10-12 19:00] VITALS: BP 167/71
[2020-10-12] MEDS ORDERED: ATORVASTATIN 80 MG TABLET PO SCH (21:00)
[2020-10-12] MEDS ORDERED: PRAMIPEXOLE 0.5MG TABLET PO SCH (21:00)
[2020-10-12] MEDS: SENNA/DOCUSATE TABLET PO SCH (21:00)
[2020-10-13 01:20] VITALS: BP 144/86
[2020-10-13 06:08] LABS: BASOPHILS % (AUTO) 1 % (0-1); EOSINOPHILS % (AUTO) 3 % (1-7); LYMPHOCYTES % (AUTO) 19 % (22-44); MEAN CORPUSCULAR HEMOGLOBIN 31.3 pg (27.5-34.5); MEAN CORPUSCULAR HGB CONC 34.3 g/dL (33.2-36.2); MONOCYTES % (AUTO) 11 % (2-9); NEUTROPHILS % (AUTO) 66 % (42-75); PLATELET COUNT 139 x10^3/uL (130-400); RED BLOOD COUNT 4.22 x10^6/uL (4.38-5.82); RED CELL DISTRIBUTION WIDTH 14.5 % (9.4-14.8)
[2020-10-13 06:19] LABS: ALBUMIN 3.1 g/dL (3.4-5.0); ANION GAP 7 mmol/L (5-15); CALCIUM 8.5 mg/dL (8.5-10.1); CHLORIDE 104 mmol/L (98-107)
[2020-10-13 06:23] LABS: ALANINE AMINOTRANSFERASE 18 U/L (12-78); ALKALINE PHOSPHATASE 107 U/L (45-117); BILIRUBIN,TOTAL 0.5 mg/dL (0.2-1.0); CREATININE 0.88 mg/dL (0.7-1.3)
[2020-10-13 07:12] VITALS: BP 169/67
[2020-10-13] MEDS ORDERED: CEFTRIAXONE 1,000 MG in DEXTROSE 5% 50 ML IVPB SCH (07:30)
[2020-10-13] MEDS: FUROSEMIDE 20 MG/2 ML IV SCH (09:06)
[2020-10-13] MEDS: CHOLECALCIFEROL 1,000 UNIT TABLET PO SCH (09:26)
[2020-10-13] MEDS: SACUBITRIL/VALSARTAN 24MG-26MG TAB PO SCH (09:26)
[2020-10-13] MEDS: SPIRONOLACTONE 25 MG TABLET PO SCH (09:26)
[2020-10-13] MEDS: ENOXAPARIN 40 MG/0.4 ML SQ SCH (09:27)
[2020-10-13] MEDS: CLOPIDOGREL 75 MG TABLET PO SCH (09:27)
[2020-10-13] MEDS: CITALOPRAM 20 MG TABLET PO SCH (09:27)
[2020-10-13] MEDS: CARVEDILOL 12.5 MG TABLET PO SCH (09:27)
[2020-10-13] MEDS: SENNA/DOCUSATE TABLET PO SCH (09:27)
[2020-10-13] MEDS: FINASTERIDE 5 MG TABLET PO SCH (10:45)
[2020-10-13] MEDS ORDERED: SUCRALFATE 1 GM/10 ML UDC PO SCH (12:00)
[2020-10-13] MEDS ORDERED: SPIR25TA5 PO (12:05)
[2020-10-13] MEDS ORDERED: CEFD300C37 PO (12:05)
[2020-10-13] MEDS ORDERED: SUCR1ORA5 PO (12:05)
[2020-10-13] MEDS ORDERED: FURO20TA3 PO (12:05)
[2020-10-13] MEDS: ACETAMINOPHEN 325 MG TABLET PO PRN (12:30)
== END 2020-10-13 13:00 | disposition home or self-care (01) ==
LOC: ED 06:35 → INTOOBSV 07:37 → EDIP 07:37 → 5SO 10:08 → DCLOUNGE 10-13 12:54 → UNDODISIN 10-13 13:00
PROVIDERS: ADMIT Internal Medicine; ATTEND Internal Medicine
DX: K59.00 Constipation, unspecified (principal); N30.90 Cystitis, unspecified without hematuria; I11.0 Hypertensive heart disease with heart failure; I50.23 Acute on chronic systolic (congestive) heart failure; I25.119 Atherosclerotic heart disease of native coronary artery with unspecified angina pectoris; I48.20 Chronic atrial fibrillation, unspecified; D68.69 Other thrombophilia; E78.5 Hyperlipidemia, unspecified; J44.9 Chronic obstructive pulmonary disease, unspecified; B19.20 Unspecified viral hepatitis C without hepatic coma; F17.290 Nicotine dependence, other tobacco product, uncomplicated; N40.1 Benign prostatic hyperplasia with lower urinary tract symptoms; N32.0 Bladder-neck obstruction; I25.2 Old myocardial infarction; I35.1 Nonrheumatic aortic (valve) insufficiency; K57.30 Diverticulosis of large intestine without perforation or abscess without bleeding; M51.36 Other intervertebral disc degeneration, lumbar region; Z85.01 Personal history of malignant neoplasm of esophagus; Z95.0 Presence of cardiac pacemaker; Z79.01 Long term (current) use of anticoagulants; Z85.118 Personal history of other malignant neoplasm of bronchus and lung; Z92.21 Personal history of antineoplastic chemotherapy; Z92.3 Personal history of irradiation; Z95.5 Presence of coronary angioplasty implant and graft
CPT/HCPCS: 36415; 74022; 74177; 80053; 81001; 83735; 83880; 84100; 84484; 85025; 87077; 87086; 87186; 93005; 96365; 96366; 96372; 96375; 96376; 99285; G0378; J0696; J1650; J1940; Q9967; 96374

== ENCOUNTER → 2021-01-19 | Outpatient (CLI) | payer MEDICARE ==
[~2021-01-19] MED LIST changes: +CHOL10003 PO; +OMNIPAQUE 350 MG/ML, 75ML BOTTLE ONE; +SACU1TAB PO; +ZINC
[2021-01-19 10:50] LABS: CREATININE 1.01 mg/dL (0.7-1.3)
== END | disposition home or self-care (01) ==
LOC: RAD 10:12
PROVIDERS: ATTEND Surgery
DX: C34.32 Malignant neoplasm of lower lobe, left bronchus or lung (principal); J43.2 Centrilobular emphysema; J84.10 Pulmonary fibrosis, unspecified; R91.1 Solitary pulmonary nodule
CPT/HCPCS: 36415; 71260; 82565; Q9967